=== PATIENT | male | born 1970 | race Hispanic/Latino ===

== ENCOUNTER 2017-12-28 08:56 | Emergency (ER) | payer SELFPAY ==
[2017-12-28] MEDS ORDERED: DEXAMETHASONE 10 MG/ML VIAL ONE (09:21)
[2017-12-28] MEDS ORDERED: FAMOTIDINE 20 MG/2 ML VIAL IV ONE (09:21)
[2017-12-28] MEDS ORDERED: NA CHLORIDE 0.9% 1,000 ML ONE (09:31)
[2017-12-28] MEDS ORDERED: DIPHENHYDRAMINE 50 MG/ML VIAL ONE ×2 (09:31→10:22)
[2017-12-28 09:59] LABS: Absolute Lymphocytes (CBC) 1.3 K/uL (0.7-4.9); Absolute Neutrophil 8.8 K/uL (1.8-8.0); Basophils % 0.4 % (0-1.3); Eosinophils % 0.4 % (0-4.4); Hematocrit 43.1 % (39.6-49.0); Lymphocytes % 11.7 % (15.3-44.8); MCH 32.7 pg (27.0-35.0); MCV 94.7 fL (80-100); Monocytes % 8.8 % (3.3-12.3); RBC Red Blood Cell Count 4.55 M/uL (4.33-5.43)
[2017-12-28 10:03] LABS: Bicarbonate 26 mEq/L (21-31); Glucose Level 104 mg/dL (65-120); Potassium 3.5 mEq/L (3.6-5.0); Sodium Level 136 mEq/L (135-145)
[2017-12-28 10:04] LABS: BUN Blood Urea Nitrogen 15 mg/dL (6-20)
[2017-12-28] MEDS ORDERED: FENTANYL CITR 100 MCG/2 ML ONE (10:22)
[2017-12-28] MEDS ORDERED: EPINEPHRINE INH 0.5 ML VIAL IH ONE (10:42)
[2017-12-28 10:50] LABS: Urine Blood TRACE (NEG); Urine Glucose NEGATIVE (NEG); Urine Protein NEGATIVE (NEG); Urine Specific Gravity 1.025 (1.005-1.030); Urine pH 6.5 (5.0-7.0)
--- NOTE | 2017-12-28 11:11 | ER ---
Nurse's Notes [facility] Name: Jacques Oropeza Age: 47 yrs Sex: Male : 1970 Arrival Date: 12/28/2017 Time: 08:59 Bed 15 Private MD: None, None Diagnosis: Uvular hydrops Presentation: 12/28 11:31 Acuity: BRODY 2 ae1 Historical: - Allergies: 09:14 No Known Allergies; rv - Home Meds: 09:14 None [Active]; rv - Immunization history:: Last tetanus immunization: up to date Flu vaccine is up to date. - Social history:: Patient uses street drugs, marijuana. Assessment: 09:11 General: Appears in no apparent distress. comfortable, well developed, Behavior is rv calm, cooperative, Reports. Pain: Complains of pain in left ear and uvula. Neuro: Level of Consciousness is awake, alert, obeys commands, Oriented to person, place, time. Cardiovascular:. Respiratory: Airway is patent Respiratory effort is unlabored, Breath sounds are clear. GI: No signs and/or symptoms were reported involving the gastrointestinal system. : No signs and/or symptoms were reported regarding the genitourinary system. EENT: Throat swollen uvula.. Derm: No signs and/or symptoms reported regarding the dermatologic system. Musculoskeletal: No signs and/or symptoms reported regarding the musculoskeletal system. 10:15 Reassessment: Patient and/or family updated on plan of care and expected duration. Pain mb3 level reassessed. Patient is alert, oriented x 3, equal unlabored respirations, skin warm/dry/pink. 11:15 Reassessment: No changes from previously documented assessment. Patient and/or family mb3 updated on plan of care and expected duration. Pain level reassessed. Patient is alert, oriented x 3, equal unlabored respirations, skin warm/dry/pink. 11:53 Reassessment: Report called to Alyssa Lester RN, SBAR used, all questions mb3 answered. Vital Signs: 09:13 BP 124 / 94; Pulse 91; Resp 18; Temp 98.1; Pulse Ox 98% on R/A; rv 10:15 BP 123 / 93; Pulse 78; Resp 18; Pulse Ox 97% on R/A; mb3 10:22 BP 119 / 90; Pulse 79; Resp 18; Pulse Ox 97% on R/A; mh5 10:46 BP 122 / 92; Pulse 86; Resp 18 S; Pulse Ox 100% ; mb3 11:36 BP 124 / 82; Pulse 82; Resp 18; Pulse Ox 99% on R/A; mb3 ED Course: 08:59 Patient arrived in ED. mr 08:59 None, None is Private Physician. mr 09:06 [facility] snw 09:06 Dipak Julian MD is Attending Physician. snw 10:14 Adarsh Breen, LES is Primary Nurse. mb3 10:24 Patient has correct armband on for positive identification. Placed in gown. Bed in low mh5 position. Call light in reach. Warm blanket given. Pulse ox on. NIBP on. 11:32 Triage completed. ae1 Administered Medications: 09:35 Drug: NS 0.9% 1000 ml Route: IV; Rate: 125 ml/hr; Site: right antecubital; rv 09:35 Drug: Decadron - Dexamethasone 10 mg Route: IVP; Site: right antecubital; rv 10:28 Follow up: Response: No adverse reaction mb3 09:35 Drug: Pepcid 20 mg Route: IVP; Site: right antecubital; rv 10:30 Follow up: Response: No adverse reaction mb3 09:35 Drug: Benadryl 12.5 mg Route: IVP; Site: right antecubital; rv 10:30 Follow up: Response: No adverse reaction mb3 10:27 Drug: fentaNYL (PF) 25 mcg Route: IVP; Site: right antecubital; mb3 10:27 Drug: Benadryl 12.5 mg Route: IVP; Site: right antecubital; mb3 10:45 Drug: Racemic EPINPHrine 0.5 ml Route: Inhalation; mb3 11:26 Drug: Unasyn 3 grams Route: IVPB; Infused Over: 30 mins; Site: right antecubital; mb3 Outcome: 11:11 ER care complete, transfer ordered by . snw 13:08 Patient left the ED. em Signatures: Kasandra Pedraza FNP-C AGRICULTURE RESEARCH DIRECTOR-Csnw Nyla Watson mr Bashir Torres, RETAIL SUPPORT ASSOCIATE RETAIL SUPPORT ASSOCIATE em Rito Alves RN RN ae1 Nyla Claire 5 Adarsh Breen, RN RN mb3 Aashish Godoy, RN RN rv
--- NOTE | 2017-12-28 11:11 | EDPHYS ---
Physician Documentation [facility] Name: Jacques Oropeza Age: 47 yrs Sex: Male : 1970 Arrival Date: 12/28/2017 Time: 08:59 Bed 15 Private MD: None, None ED Physician Dipak Julian HPI: 12/28 09:11 This 47 yrs old Male presents to ER via Unassigned with complaints of Sore snw Throat, Ear Pain. 09:11 The patient presents with sore throat, dysphagia. The patient describes throat pain as snw suffocating. Onset: The symptoms/episode began/occurred gradually, 3 day(s) ago. Severity of symptoms: At their worst the symptoms were moderate, severe. Associated signs and symptoms: Pertinent positives: dysphagia. The patient has not experienced similar symptoms in the past. The patient has not recently seen a physician. pt states his throat has become progressively more painful. + hot potato speech, no trismus. Historical: - Allergies: 09:14 No Known Allergies; rv - Home Meds: 09:14 None [Active]; rv - Immunization history:: Last tetanus immunization: up to date Flu vaccine is up to date. - Social history:: Patient uses street drugs, marijuana. ROS: 09:11 Constitutional: Negative for fever, chills, and weight loss, Eyes: Negative for injury, snw pain, redness, and discharge, Neck: Negative for injury, pain, and swelling, Cardiovascular: Negative for chest pain, palpitations, and edema, Respiratory: Negative for shortness of breath, cough, wheezing, and pleuritic chest pain, Abdomen/GI: Negative for abdominal pain, nausea, vomiting, diarrhea, and constipation, Back: Negative for injury and pain, : Negative for injury, bleeding, discharge, and swelling, MS/Extremity: Negative for injury and deformity, Skin: Negative for injury, rash, and discoloration, Neuro: Negative for headache, weakness, numbness, tingling, and seizure. Exam: 09:11 Constitutional: This is a well developed, well nourished patient who is awake, alert, snw and in no acute distress. Head/Face: Normocephalic, atraumatic. ENT: Nares patent. No nasal discharge, no septal abnormalities noted. Tympanic membranes are normal and external auditory canals are clear. Oropharynx with redness, significant uvular swelling, no masses, exudates, or evidence of obstruction, uvula midline. Mucous membranes moist. Neck: Trachea midline, no thyromegaly or masses palpated, and no cervical lymphadenopathy. Supple, full range of motion without nuchal rigidity, or vertebral point tenderness. No Meningismus. Chest/axilla: Normal chest wall appearance and motion. Nontender with no deformity. No lesions are appreciated. Cardiovascular: Regular rate and rhythm with a normal S1 and S2. No gallops, murmurs, or rubs. Normal PMI, no JVD. No pulse deficits. Respiratory: Lungs have equal breath sounds bilaterally, clear to auscultation and percussion. No rales, rhonchi or wheezes noted. No increased work of breathing, no retractions or nasal flaring. Abdomen/GI: Soft, non-tender, with normal bowel sounds. No distension or tympany. No guarding or rebound. No evidence of tenderness throughout. Back: No spinal tenderness. No costovertebral tenderness. Full range of motion. Skin: Warm, dry with normal turgor. Normal color with no rashes, no lesions, and no evidence of cellulitis. MS/ Extremity: Pulses equal, no cyanosis. Neurovascular intact. Full, normal range of motion. Neuro: Awake and alert, GCS 15, oriented to person, place, time, and situation. Cranial nerves II-XII grossly intact. Motor strength 5/5 in all extremities. Sensory grossly intact. Cerebellar exam normal. Normal gait. 09:11 Eyes: Pupils equal round and reactive to light, extra-ocular motions intact. Lids and lashes normal. Conjunctiva and sclera are non-icteric and not injected. Cornea within normal limits. Periorbital areas with no swelling, redness, or edema. Vital Signs: 09:13 BP 124 / 94; Pulse 91; Resp 18; Temp 98.1; Pulse Ox 98% on R/A; rv 10:15 BP 123 / 93; Pulse 78; Resp 18; Pulse Ox 97% on R/A; mb3 10:22 BP 119 / 90; Pulse 79; Resp 18; Pulse Ox 97% on R/A; mh5 10:46 BP 122 / 92; Pulse 86; Resp 18 S; Pulse Ox 100% ; mb3 11:36 BP 124 / 82; Pulse 82; Resp 18; Pulse Ox 99% on R/A; mb3 MDM: 09:11 Patient medically screened. snw 11:11 Data reviewed: vital signs, nurses notes. Data interpreted: Pulse oximetry: on room air snw is 100 %. Interpretation: normal. Counseling: I had a detailed discussion with the patient and/or guardian regarding: the historical points, exam findings, and any diagnostic results supporting the discharge/admit diagnosis, the presence of at least one elevated blood pressure reading (>120/80) during this emergency department visit, lab results, the need to transfer to another facility, [facility] does not immediately have the required specialist. Physician consultation: Dr. Tapia was called at 10:50, was contacted at 10:55, regarding regarding transfer, to [facility]. would like admission per Dr. Dr Cortez Spoke with Dr. Cortez who kindly accepts pt in transfer to ICU [facility]. 12/28 09:25 Order name: Basic Metabolic Panel; Complete Time: 10:06 formerly [facility] 12/28 09:25 Order name: CBC with Diff; Complete Time: 10:06 w 12/28 09:25 Order name: Blood Culture Adult (2) formerly [facility] 12/28 10:01 Order name: Urine Dipstick--Ancillary (enter results); Complete Time: 10:52 bd 12/28 09:25 Order name: IV Saline Lock; Complete Time: 09:50 snw 12/28 09:25 Order name: Labs collected and sent; Complete Time: 09:51 w 12/28 09:25 Order name: Urine Dipstick-Ancillary (obtain specimen); Complete Time: 09:51 snw Administered Medications: 09:35 Drug: NS 0.9% 1000 ml Route: IV; Rate: 125 ml/hr; Site: right antecubital; rv 09:35 Drug: Decadron - Dexamethasone 10 mg Route: IVP; Site: right antecubital; rv 10:28 Follow up: Response: No adverse reaction mb3 09:35 Drug: Pepcid 20 mg Route: IVP; Site: right antecubital; rv 10:30 Follow up: Response: No adverse reaction mb3 09:35 Drug: Benadryl 12.5 mg Route: IVP; Site: right antecubital; rv 10:30 Follow up: Response: No adverse reaction mb3 10:27 Drug: fentaNYL (PF) 25 mcg Route: IVP; Site: right antecubital; mb3 10:27 Drug: Benadryl 12.5 mg Route: IVP; Site: right antecubital; mb3 10:45 Drug: Racemic EPINPHrine 0.5 ml Route: Inhalation; mb3 11:26 Drug: Unasyn 3 grams Route: IVPB; Infused Over: 30 mins; Site: right antecubital; mb3 Disposition: 16:16 Co-signature as Attending Physician, Dipak Julian MD I agree with the assessment and kdr plan of care. Disposition: 12/28/17 11:11 Transfer ordered to [facility]. Diagnosis is Uvular hydrops. - Reason for transfer: Higher level of care. - Accepting physician is Dr. Cortez. - Condition is Stable. - Problem is new. - Symptoms are unchanged. Signatures: Dispatcher [employer] EDDipak Montesinos MD MD kdr Kasandra Pedraza, SCREW REMOVER-C SCREW REMOVER-Csnw Bashir Torres, MODULAR HOME CREW MEMBER MODULAR HOME CREW MEMBER em Adarsh Breen, RN RN mb3 Aashish Godoy, RN RN rv Corrections: (The following items were deleted from the chart) 13:08 11:11 12/28/2017 11:11 Transfer ordered to [facility]. Diagnosis is em Uvular hydrops. Reason for transfer: Higher level of care. Accepting physician is Dr. Cortez. Condition is Stable. Problem is new. Symptoms are unchanged. snw
[2017-12-28] MEDS ORDERED: NA CHLORIDE 0.9% 250 ML ONE (11:23)
[2017-12-28] MEDS ORDERED: AMPICILLIN/SULBACTAM 3GM/VIAL ONE (11:23)
== END 2017-12-28 13:08 | disposition short-term general hospital (02) ==
LOC: ER 08:56
DX: R60.9 Edema, unspecified (principal)
CPT/HCPCS: 36415; 80048; 81003; 85025; 87040; 96374; 96375; 99284; J0295; J1100; J3010; J7030

== ENCOUNTER 2018-04-24 16:15 | Emergency (ER) | payer SELFPAY ==
--- OUTSIDE RECORDS SUMMARY | 2018-04-24 16:17 | XMS REPORT ---
:1970 [facility] Address [address] [place] [address] Dr. Peters [address] [place] [id number] Care Team Providers Name Role Phone BALJINDER LENTZ Unavailable Unavailable Problems This patient has no known problems. Allergies, Adverse Reactions, Alerts This patient has no known allergies or adverse reactions. Medications This patient has no known medications. Results Test Description Test Time Test Comments Text Results Atomic Results Result Comments RAPID STREP A SCREEN 2017-12-29 09:58:00 Test Item Value Reference Range Comments STREP A ANTIGEN (BEAKER) (test ngrp=845) Negative Negative HIV-1 ANTIGEN WITH HIV-1/2 [id number] 08:48:00 Test Item Value Reference Range Comments HIV-1 ANTIGEN WITH HIV 1\T\2 ANTIBODY (2) Nonreactive Nonreactive (BEAKER) (test zocf=2424) BASIC METABOLIC [id number] 04:37:00 Test Item Value Reference Range Comments SODIUM (BEAKER) (test 138 meq/L 136-145 mkrh=760) POTASSIUM (BEAKER) (test 3.9 meq/L 3.5-5.1 iuhe=074) CHLORIDE (BEAKER) (test 106 meq/L 98-107 xdnl=276) CO2 (BEAKER) (test 22 meq/L 22-29 pakl=054) BLOOD UREA NITROGEN 23 mg/dL 7-21 (BEAKER) (test crxn=882) CREATININE (BEAKER) (test 0.89 mg/dL 0.57-1.25 uofm=007) GLUCOSE RANDOM (BEAKER) 163 mg/dL 70-105 (test jxdu=217) CALCIUM (BEAKER) (test 9.6 mg/dL 8.4-10.2 wugx=127) EGFR (BEAKER) (test mL/min/1.73 sq m INSUFFICIENT CLINICAL DATA doia=1852) TO CALCULATE ESTIMATED GFR. CBC W/PLT COUNT & AUTO [id number] 04:21:00 Test Item Value Reference Range Comments WHITE BLOOD CELL COUNT (BEAKER) (test umnn=884) 11.3 K/ L 3.5-10.5 RED BLOOD CELL COUNT (BEAKER) (test tiyx=724) 4.27 M/ L 4.63-6.08 HEMOGLOBIN (BEAKER) (test vkmy=690) 14.4 GM/DL 13.7-17.5 HEMATOCRIT (BEAKER) (test aoef=484) 40.9 % 40.1-51.0 MEAN CORPUSCULAR VOLUME (BEAKER) (test bqxf=538) 95.8 fL 79.0-92.2 MEAN CORPUSCULAR HEMOGLOBIN (BEAKER) (test 33.7 pg 25.7-32.2 orpk=707) MEAN CORPUSCULAR HEMOGLOBIN CONC (BEAKER) (test 35.2 GM/DL 32.3-36.5 mdpi=680) RED CELL DISTRIBUTION WIDTH (BEAKER) (test 12.2 % 11.6-14.4 xldf=068) PLATELET COUNT (BEAKER) (test zzwp=410) 269 K/CU MM 150-450 MEAN PLATELET VOLUME (BEAKER) (test ljgb=294) 9.4 fL 9.4-12.4 NUCLEATED RED BLOOD CELLS (BEAKER) (test 0 /100 WBC 0-0 nddh=118) NEUTROPHILS RELATIVE PERCENT (BEAKER) (test 91 % azsj=237) LYMPHOCYTES RELATIVE PERCENT (BEAKER) (test 5 % mbpo=627) MONOCYTES RELATIVE PERCENT (BEAKER) (test 3 % kijc=875) EOSINOPHILS RELATIVE PERCENT (BEAKER) (test 0 % abmd=311) BASOPHILS RELATIVE PERCENT (BEAKER) (test 0 % zveh=858) NEUTROPHILS ABSOLUTE COUNT (BEAKER) (test 10.28 K/ L 1.78-5.38 jymk=756) LYMPHOCYTES ABSOLUTE COUNT (BEAKER) (test 0.61 K/ L 1.32-3.57 vnqa=653) MONOCYTES ABSOLUTE COUNT (BEAKER) (test 0.32 K/ L 0.30-0.82 wvfz=335) EOSINOPHILS ABSOLUTE COUNT (BEAKER) (test 0.00 K/ L 0.04-0.54 jeoj=172) BASOPHILS ABSOLUTE COUNT (BEAKER) (test 0.01 K/ L 0.01-0.08 mwbt=702) IMMATURE GRANULOCYTES-RELATIVE PERCENT (BEAKER) 0 % 0-1 (test rdqv=6561) RAD, CHEST, 1 VIEW, NON [id number] 15:38:00Post-intubationReason for exam:-& gt;dyspneaShould this be performed at the bedside?->YesFINAL REPORT Chest, one view HISTORY: Dyspnea COMPARISON: None. DISCUSSION: Lungs are clear without focal consolidation. Cardiomediastinal silhouette is unremarkable. No acute osseous abnormality. No pleural effusion or pneumothorax. Visualized portions of the upper abdomen are unremarkable. IMPRESSION: No acute cardiopulmonary abnormality. Signed: Shiraz Culp MDReport Verified Date/Time: 12/28/2017 15:38:07 Reading Location: [facility] C013Y CT Body Reading Room [id number] 15:13:00 Test Item Value Reference Range Comments PARTIAL THROMBOPLASTIN TIME (BEAKER) (test 32.6 seconds 22.5-36.0 vulr=348) PROTHROMBIN TIME/[id number] 15:12:00 Test Item Value Reference Range Comments PROTIME (BEAKER) (test xztx=558) 14.3 seconds 11.7-14.7 INR (BEAKER) (test fwkg=052) 1.1 <=5.9 RECOMMENDED COUMADIN/WARFARIN INR THERAPY RANGESSTANDARD DOSE: 2.0 - 3.0 Includes: PROPHYLAXIS forvenous thrombosis, systemic embolization; TREATMENT for venous thrombosis and/or pulmonary embolus.HIGH RISK: Target INR is 2.5-3.5 for patients with mechanical heart valves.
--- OUTSIDE RECORDS SUMMARY | 2018-04-24 16:17 | XMS REPORT | Clinical Summary ---
:1970 Author Organization [facility] Address [address] [place] [address] Phone Care Team Providers Name Role Phone Unavailable Primary Care Provider Unavailable Allergies No Known Allergies Current Medications Prescription Sig. Disp. Refills Start Date End Date Status amoxicillin-clavulanat Take 1 tablet 10 tablet 0 12/29/2017 01/03/2018 e (AUGMENTIN) 875-125 by mouth 2 mg per tablet (two) times daily for 5 days. Active Problems Problem Noted Date Pharyngitis 12/29/2017 Uvular edema 12/28/2017 Encounters Date Type Specialty Care Team Description 12/28/2017 - Hospital Encounter Intensive Care Richie Cortez Uvular 12/29/2017 Didier Parson MD edema;Pharyngitis, unspecified etiology after 04/23/2017 Social History Tobacco Use Types Packs/Day Years Used Date Never Smoker Smokeless Tobacco: Never Used Sex Assigned at Date Recorded Not on file Last Filed Vital Signs Vital Sign Reading Time Taken Blood Pressure 149/87 12/29/2017 12:00 PM CDT Pulse 87 12/29/2017 12:00 PM CDT Temperature 36.7 C (98.1 F) 12/29/2017 11:00 AM CDT Respiratory Rate 15 12/29/2017 12:00 PM CDT Oxygen Saturation 95% 12/29/2017 12:00 PM CDT Inhaled Oxygen Concentration - - Weight 79.6 kg (175 lb 6.4 oz) 12/28/2017 2:16 PM CDT Height 167.6 cm (5' 6") 12/28/2017 2:16 PM CDT Body Mass Index 28.31 12/28/2017 2:16 PM CDT Plan of Treatment Not on file Results RHYTHM STRIP - SCAN (01/01/2018 2:00 PM)Rapid Strep A screen (12/29/2017 7:50 AM) Component Value Ref Range Strep A Ag Negative Negative Specimen Performing Laboratory Throat [address] [address] HIV-1 Antigen with HIV-1/2 Antibody (12/29/2017 7:49 AM) Component Value Ref Range HIV-1 Antigen with HIV 1&2 Antibody Nonreactive Nonreactive Specimen Performing Laboratory Blood - Arm, Right [address] [address] CBC with platelet count + automated diff (12/29/2017 3:52 AM) Component Value Ref Range WBC 11.3 (H) 3.5 - 10.5 K/L RBC 4.27 (L) 4.63 - 6.08 M/L Hemoglobin 14.4 13.7 - 17.5 GM/DL Hematocrit 40.9 40.1 - 51.0 % MCV 95.8 (H) 79.0 - 92.2 fL MCH 33.7 (H) 25.7 - 32.2 pg MCHC 35.2 32.3 - 36.5 GM/DL RDW 12.2 11.6 - 14.4 % Platelets 269 150 - 450 K/CU MM MPV 9.4 9.4 - 12.4 fL nRBC 0 0 - 0 /100 WBC % Neutros 91 % % Lymphs 5 % % Monos 3 % % Eos 0 % % Baso 0 % # Neutros 10.28 (H) 1.78 - 5.38 K/L # Lymphs 0.61 (L) 1.32 - 3.57 K/L # Monos 0.32 0.30 - 0.82 K/L # Eos 0.00 (L) 0.04 - 0.54 K/L # Baso 0.01 0.01 - 0.08 K/L Immature Granulocytes-Relative 0 0 - 1 % Specimen Performing Laboratory Blood [address] [address] CBC with platelet count + automated diff (12/29/2017 3:52 AM) Specimen Performing Laboratory Blood Narrative The following orders were created for panel order CBC with platelet count + automated diff. Procedure Abnormality Status --------- ------ CBC with platelet count ...[[id number]]AbnormalFinal result Please view results for these tests on the individual orders. Basic Metabolic Panel (12/29/2017 3:52 AM) Component Value Ref Range Sodium 138 136 - 145 meq/L Potassium 3.9 3.5 - 5.1 meq/L Chloride 106 98 - 107 meq/L CO2 22 22 - 29 meq/L BUN 23 (H) 7 - 21 mg/dL Creatinine 0.89 0.57 - 1.25 mg/dL Glucose 163 (H) 70 - 105 mg/dL Calcium 9.6 8.4 - 10.2 mg/dL EGFR Comment: INSUFFICIENT CLINICAL DATA TO CALCULATE mL/min/1.73 sq m ESTIMATED GFR. Specimen Performing Laboratory Blood [address] [address] aPTT (12/28/2017 2:54 PM) Component Value Ref Range PTT 32.6 22.5 - 36.0 seconds Specimen Performing Laboratory Blood - Arm, [address] [address] Prothrombin time/INR (12/28/2017 2:54 PM) Component Value Ref Range Protime 14.3 11.7 - 14.7 seconds INR 1.1 <=5.9 Specimen Performing Laboratory Blood - Arm, [address] [address] Narrative RECOMMENDED COUMADIN/WARFARIN INR THERAPY RANGES STANDARD DOSE: 2.0 - 3.0 Includes: PROPHYLAXIS for venous thrombosis, systemic embolization; TREATMENT for venous thrombosis and/or pulmonary embolus. HIGH RISK: Target INR is 2.5-3.5 for patients with mechanical heart valves. XR chest 1 view portable / bedside (12/28/2017 2:24 PM) Specimen Performing Laboratory GE RIS Narrative FINAL REPORT Chest, one view HISTORY: Dyspnea COMPARISON: None. DISCUSSION: Lungs are clear without focal consolidation. Cardiomediastinal silhouette is unremarkable. No acute osseous abnormality. No pleural effusion or pneumothorax. Visualized portions of the upper abdomen are unremarkable. IMPRESSION: No acute cardiopulmonary abnormality. Signed: Shiraz Culp MD Report Verified Date/Time:12/28/2017 15:38:07 Reading Location: [facility] C013Y CT Body Reading Room Procedure Note Interface, External Ris In - 12/28/2017 3:40 PM CDT FINAL REPORT Chest, one view HISTORY: Dyspnea COMPARISON: None. DISCUSSION: Lungs are clear without focal consolidation. Cardiomediastinal silhouette is unremarkable. No acute osseous abnormality. No pleural effusion or pneumothorax. Visualized portions of the upper abdomen are unremarkable. IMPRESSION: No acute cardiopulmonary abnormality. Signed: Shiraz Culp MD Report Verified Date/Time: 12/28/2017 15:38:07 Reading Location: [facility] B1 C013Y CT Body Reading Room after 04/23/2017
[2018-04-24] MEDS ORDERED: IBUPROFEN 400 MG TAB ONE (17:38)
[2018-04-24] MEDS ORDERED: METHYLPREDNISOLONE 125 MG INJ ONE (17:38)
[2018-04-24] MEDS ORDERED: KETOROLAC 30 MG/ML INJ ONE (17:39)
[2018-04-24] MEDS ORDERED: FAMOTIDINE 20 MG TAB ONE (17:39)
--- NOTE | 2018-04-24 18:17 | ER ---
Nurse's Notes [facility] Name: Jacques Oropeza Age: 48 yrs Sex: Male : 1970 Arrival Date: 04/24/2018 Time: 16:17 Bed 24 Private MD: Diagnosis: Sciatica, left side Presentation: 04/24 16:33 Presenting complaint: Patient states: left low back pain radiating down left leg that aa5 began 2 days ago. Transition of care: patient was not received from another setting of care. Onset of symptoms was April 2018. Risk Assessment: Do you want to hurt yourself or someone else? Patient reports no desire to harm self or others. Initial Sepsis Screen: Does the patient meet any 2 criteria? No. Patient's initial sepsis screen is negative. Does the patient have a suspected source of infection? No. Patient's initial sepsis screen is negative. Care prior to arrival: None. 16:33 Method Of Arrival: Ambulatory aa5 16:33 Acuity: BRODY 4 aa5 Historical: - Allergies: 16:34 No Known Allergies; aa5 - PMHx: 16:34 None; aa5 - PSHx: 16:34 left leg; aa5 - Immunization history:: Adult Immunizations unknown. - Social history:: Smoking status: Patient/guardian denies using tobacco. - Ebola Screening: : No symptoms or risks identified at this time. Screenin:14 Abuse screen: Denies threats or abuse. Nutritional screening: No deficits noted. tl3 Tuberculosis screening: No symptoms or risk factors identified. Fall Risk None identified. Assessment: 17:14 General: Appears uncomfortable, well groomed, well developed, well nourished, Behavior tl3 is calm, cooperative, appropriate for age. Pain: Complains of pain in left lower back, hip arond down the left leg Pain currently is 8 out of 10 on a pain scale. Neuro: Level of Consciousness is awake, alert, obeys commands, Oriented to person, place, time, situation, Appropriate for age. Cardiovascular: Patient's skin is warm and dry. Respiratory: Airway is patent Respiratory effort is even, unlabored, Respiratory pattern is regular, symmetrical. GI: No signs and/or symptoms were reported involving the gastrointestinal system. : No signs and/or symptoms were reported regarding the genitourinary system. EENT: No signs and/or symptoms were reported regarding the EENT system. Derm: No signs and/or symptoms reported regarding the dermatologic system. Musculoskeletal: Reports since 2 days. tried bio freeze and motrin, no relief obtained. 18:29 Reassessment: No changes from previously documented assessment. Patient and/or family tl3 updated on plan of care and expected duration. Pain level reassessed. Patient is alert, oriented x 3, equal unlabored respirations, skin warm/dry/pink. Vital Signs: 16:34 BP 114 / 75; Pulse 87; Resp 16 S; Temp 98.2(TE); Pulse Ox 96% on R/A; Weight 84.37 kg aa5 (R); Height 5 ft. 6 in. (167.64 cm) (R); Pain 8/10; 16:54 BP 107 / 79; Pulse 80; Resp 16; Pulse Ox 99% on R/A; mt 18:29 BP 116 / 62; Pulse 63; Resp 18; Pulse Ox 99% on R/A; tl3 16:34 Body Mass Index 30.02 (84.37 kg, 167.64 cm) aa5 ED Course: 16:17 Patient arrived in ED. rg4 16:34 Triage completed. aa5 16:34 Arm band placed on. aa5 16:45 Gabi Banks RN is Primary Nurse. tl3 16:49 Dipak Julian MD is Attending Physician. kdr 17:14 Patient has correct armband on for positive identification. Bed in low position. Call tl3 light in reach. Side rails up X 1. Pulse ox on. NIBP on. 17:14 No provider procedures requiring assistance completed. tl3 18:29 Patient did not have IV access during this emergency room visit. tl3 Administered Medications: 17:40 Drug: Motrin 800 mg Route: PO; tl3 18:30 Follow up: Response: No adverse reaction; Pain is decreased tl3 17:40 Drug: Pepcid 20 mg Route: PO; tl3 18:30 Follow up: Response: No adverse reaction tl3 17:41 Drug: TORadol 60 mg Route: IM; Site: left vastus lateralis; tl3 18:30 Follow up: Response: No adverse reaction; Pain is decreased tl3 17:41 Drug: SOLU-Medrol 125 mg Route: IM; Site: left vastus lateralis; tl3 18:30 Follow up: Response: No adverse reaction tl3 Outcome: 18:16 Discharge ordered by . kdr 18:29 Discharged to home ambulatory. tl3 18:29 Condition: stable 18:29 Discharge instructions given to patient, Instructed on discharge instructions, follow up and referral plans. medication usage, Demonstrated understanding of instructions, follow-up care, medications, Prescriptions given X 4. 18:53 Patient left the ED. tl3 Signatures: Dipak Julian MD MD kdr Calderon, Audri, RN RN aa5 Alexandrea Gonzalez Moriah mt Lowrey, Tammy, LES RN tl3
--- NOTE | 2018-04-24 18:17 | EDPHYS ---
Physician Documentation [facility] Name: Jacques Oropeza Age: 48 yrs Sex: Male : 1970 Arrival Date: 04/24/2018 Time: 16:17 Bed 24 Private MD: ED Physician Dipak Julian HPI: 04/24 18:20 This 48 yrs old Male presents to ER via Ambulatory with complaints of Leg kdr Pain, Back Pain. 18:20 The patient presents with. kdr 18:21 The patient's problem is reported as Left sciatic nerve pain. Onset: The kdr symptoms/episode began/occurred gradually, 2 day(s) ago. Duration: The episode is continuous, the symptoms became worse the symptoms became persistent. Context: the episode(s) was witnessed, symptoms became apparent. The symptoms are alleviated by laying, rest, The symptoms are aggravated by standing, walking, changing position. Associated signs and symptoms: The patient has no apparent associated signs or symptoms, Pertinent negatives: agitation, ataxia, headache, lightheadedness, numbness, palpitations, seizure, shortness of breath, tingling, vertigo, vomiting, weakness. Severity of symptoms: At their worst the symptoms were mild moderate just prior to arrival, in the emergency department the symptoms are unchanged. The patient has not experienced similar symptoms in the past. Historical: - Allergies: 16:34 No Known Allergies; aa5 - PMHx: 16:34 None; aa5 - PSHx: 16:34 left leg; aa5 - Immunization history:: Adult Immunizations unknown. - Social history:: Smoking status: Patient/guardian denies using tobacco. - Ebola Screening: : No symptoms or risks identified at this time. ROS: 18:21 Constitutional: Negative for fever, chills, and weight loss, Eyes: Negative for injury, kdr pain, redness, and discharge, ENT: Negative for injury, pain, and discharge, Neck: Negative for injury, pain, and swelling, Cardiovascular: Negative for chest pain, palpitations, and edema, Respiratory: Negative for shortness of breath, cough, wheezing, and pleuritic chest pain, Abdomen/GI: Negative for abdominal pain, nausea, vomiting, diarrhea, and constipation, : Negative for injury, bleeding, discharge, and swelling, Skin: Negative for injury, rash, and discoloration, Neuro: Negative for headache, weakness, numbness, tingling, and seizure activity. Psych: Negative for depression, anxiety, suicide ideation, homicidal ideation, and hallucinations, Allergy/Immunology: Negative for hives, rash, and allergies, Endocrine: Negative for neck swelling, polydipsia, polyuria, polyphagia, and marked weight changes, Hematologic/Lymphatic: Negative for swollen nodes, abnormal bleeding, and unusual bruising. 18:21 Back: Positive for pain with movement, Negative for pain at rest. 18:21 MS/extremity: Positive for Pain radiating down left leg anteriorly. Exam: 18:21 Constitutional: This is a well developed, well nourished patient who is awake, alert, kdr and in no acute distress. Head/Face: Normocephalic, atraumatic. 18:21 Musculoskeletal/extremity: Extremities: Pain with straight leg rasing to about 20% on the left. No pain on the right. No change in bowel or bladder control, ROM: intact in all extremities, Circulation is intact in all extremities. Sensation intact. Vital Signs: 16:34 BP 114 / 75; Pulse 87; Resp 16 S; Temp 98.2(TE); Pulse Ox 96% on R/A; Weight 84.37 kg aa5 (R); Height 5 ft. 6 in. (167.64 cm) (R); Pain 8/10; 16:54 BP 107 / 79; Pulse 80; Resp 16; Pulse Ox 99% on R/A; mt 18:29 BP 116 / 62; Pulse 63; Resp 18; Pulse Ox 99% on R/A; tl3 16:34 Body Mass Index 30.02 (84.37 kg, 167.64 cm) aa5 MDM: 18:16 Patient medically screened. kdr 18:21 Data reviewed: vital signs, nurses notes. Counseling: I had a detailed discussion with kdr the patient and/or guardian regarding: the historical points, exam findings, and any diagnostic results supporting the discharge/admit diagnosis, the need for outpatient follow up. Administered Medications: 17:40 Drug: Motrin 800 mg Route: PO; tl3 18:30 Follow up: Response: No adverse reaction; Pain is decreased tl3 17:40 Drug: Pepcid 20 mg Route: PO; tl3 18:30 Follow up: Response: No adverse reaction tl3 17:41 Drug: TORadol 60 mg Route: IM; Site: left vastus lateralis; tl3 18:30 Follow up: Response: No adverse reaction; Pain is decreased tl3 17:41 Drug: SOLU-Medrol 125 mg Route: IM; Site: left vastus lateralis; tl3 18:30 Follow up: Response: No adverse reaction tl3 Disposition: 04/24/18 18:16 Discharged to Home. Impression: Sciatica, left side. - Condition is Stable. - Discharge Instructions: Sciatica, [id number], Radicular Pain. - Prescriptions for Ibuprofen 800 mg Oral Tablet - take 1 tablet by ORAL route every 8 hours As needed take with food; 30 tablet. Pepcid 20 mg Oral Tablet - take 1 tablet by ORAL route every 12 hours for 5 days; 20 tablet. Robaxin 500 mg Oral Tablet - take 2 tablet by ORAL route every 6 hours As needed; 40 tablet. Medrol (Charlie) 4 mg Oral Tablets, Dose Pack - take 1 tablet by ORAL route as directed - follow package instructions; 1 packet. Tylenol- Codeine #3 300-30 mg Oral Tablet - take 2 tablets by ORAL route every 6 hours As needed; 15 tablet. - Medication Reconciliation Form, Thank You Letter, Antibiotic Education, Prescription Opioid Use form. - Follow up: Private Physician; When: 2 - 3 days; Reason: If symptoms return, Further diagnostic work-up, Recheck today's complaints, Continuance of care, Re-evaluation by your physician. - Problem is an acute exacerbation. - Symptoms have improved. Signatures: Dipak Julian MD MD [facility] Tracie Chandra RN RN aa5 Gabi Banks RN RN tl3 Corrections: (The following items were deleted from the chart) 18:53 18:16 04/24/2018 18:16 Discharged to Home. Impression: Sciatica, left side. Condition tl3 is Stable. Forms are Medication Reconciliation Form, Thank You Letter, Antibiotic Education, Prescription Opioid Use. Follow up: Private Physician; When: 2 - 3 days; Reason: If symptoms return, Further diagnostic work-up, Recheck today's complaints, Continuance of care, Re-evaluation by your physician. Problem is an acute exacerbation. Symptoms have improved. kdr
== END 2018-04-24 18:53 | disposition home or self-care (01) ==
LOC: ER 16:15
DX: M54.32 Sciatica, left side (principal)
CPT/HCPCS: 96372; 99283; J2930

== ENCOUNTER 2019-01-18 09:21 | Emergency (ER) | payer SELFPAY ==
--- OUTSIDE RECORDS SUMMARY | 2019-01-18 09:24 | XMS REPORT ---
:1970 Author Organization [facility] Address [facility] [address] [place] [id number] Care Team Providers Name Role Phone BALJINDER [...] Range Comments STREP A ANTIGEN (BEAKER) (test uozd=691) Negative Negative HIV-1 ANTIGEN WITH HIV-1/2 [id number] 08:48:00 Test Item Value Reference Range Comments HIV-1 ANTIGEN WITH HIV 1\T\2 ANTIBODY (2) Nonreactive Nonreactive (BEAKER) (test gtla=5059) BASIC METABOLIC [id number] 04:37:00 Test Item Value Reference Range Comments SODIUM (BEAKER) (test 138 meq/L 136-145 eupd=071) POTASSIUM (BEAKER) (test 3.9 meq/L 3.5-5.1 vxgi=852) CHLORIDE (BEAKER) (test 106 meq/L 98-107 giqt=226) CO2 (BEAKER) (test 22 meq/L 22-29 vupj=948) BLOOD UREA NITROGEN 23 mg/dL 7-21 (BEAKER) (test hzhy=763) CREATININE (BEAKER) (test 0.89 mg/dL 0.57-1.25 sdks=814) GLUCOSE RANDOM (BEAKER) 163 mg/dL 70-105 (test fvhd=097) CALCIUM (BEAKER) (test 9.6 mg/dL 8.4-10.2 vzhg=621) EGFR (BEAKER) (test mL/min/1.73 sq m INSUFFICIENT CLINICAL DATA ndsf=4494) TO CALCULATE ESTIMATED GFR. CBC W/PLT COUNT & AUTO [id number] 04:21:00 Test Item Value Reference Range Comments WHITE BLOOD CELL COUNT (BEAKER) (test izxv=080) 11.3 K/ L 3.5-10.5 RED BLOOD CELL COUNT (BEAKER) (test aend=967) 4.27 M/ L 4.63-6.08 HEMOGLOBIN (BEAKER) (test tqhq=973) 14.4 GM/DL 13.7-17.5 HEMATOCRIT (BEAKER) (test gdgo=287) 40.9 % 40.1-51.0 MEAN CORPUSCULAR VOLUME (BEAKER) (test wsdq=534) 95.8 fL 79.0-92.2 MEAN CORPUSCULAR HEMOGLOBIN (BEAKER) (test 33.7 pg 25.7-32.2 cgqn=224) MEAN CORPUSCULAR HEMOGLOBIN CONC (BEAKER) (test 35.2 GM/DL 32.3-36.5 wijn=131) RED CELL DISTRIBUTION WIDTH (BEAKER) (test 12.2 % 11.6-14.4 aseu=036) PLATELET COUNT (BEAKER) (test womq=185) 269 K/CU MM 150-450 MEAN PLATELET VOLUME (BEAKER) (test edwx=122) 9.4 fL 9.4-12.4 NUCLEATED RED BLOOD CELLS (BEAKER) (test 0 /100 WBC 0-0 wukv=359) NEUTROPHILS RELATIVE PERCENT (BEAKER) (test 91 % aike=367) LYMPHOCYTES RELATIVE PERCENT (BEAKER) (test 5 % umno=251) MONOCYTES RELATIVE PERCENT (BEAKER) (test 3 % qmyj=188) EOSINOPHILS RELATIVE PERCENT (BEAKER) (test 0 % yopa=799) BASOPHILS RELATIVE PERCENT (BEAKER) (test 0 % tald=277) NEUTROPHILS ABSOLUTE COUNT (BEAKER) (test 10.28 K/ L 1.78-5.38 bksp=613) LYMPHOCYTES ABSOLUTE COUNT (BEAKER) (test 0.61 K/ L 1.32-3.57 ebwk=049) MONOCYTES ABSOLUTE COUNT (BEAKER) (test 0.32 K/ L 0.30-0.82 efvx=321) EOSINOPHILS ABSOLUTE COUNT (BEAKER) (test 0.00 K/ L 0.04-0.54 oacp=159) BASOPHILS ABSOLUTE COUNT (BEAKER) (test 0.01 K/ L 0.01-0.08 tqlp=194) IMMATURE GRANULOCYTES-RELATIVE PERCENT (BEAKER) 0 % 0-1 (test xusd=6668) RAD, CHEST, 1 VIEW, NON [id number] 15:38:00Post-intubationReason for exam:-& gt;dyspneaShould this be performed at the bedside?->YesFINAL REPORT Chest, one view HISTORY: Dyspnea COMPARISON: None. DISCUSSION: Lungs are clear without focal consolidation. Cardiomediastinal silhouette is unremarkable. No acute osseous abnormality. No pleural effusion or pneumothorax. Visualized portions of the upper abdomen are unremarkable. IMPRESSION: No acute cardiopulmonary abnormality. Signed: Shiraz [place] Verified Date/Time: 12/28/2017 15:38:07 Reading Location: [facility] C013Y CT Body Reading Room [id number] 15:13:00 Test Item Value Reference Range Comments PARTIAL THROMBOPLASTIN TIME (BEAKER) (test 32.6 seconds 22.5-36.0 vlyi=763) PROTHROMBIN [id number] 15:12:00 Test Item Value Reference Range Comments PROTIME (BEAKER) (test mnmz=372) 14.3 seconds 11.7-14.7 INR (BEAKER) (test tqgv=518) 1.1 <=5.9 RECOMMENDED COUMADIN/WARFARIN INR THERAPY RANGESSTANDARD DOSE: 2.0 - 3.0 Includes: PROPHYLAXIS forvenous thrombosis, systemic embolization; TREATMENT for venous thrombosis and/or pulmonary embolus.HIGH RISK: Target INR is 2.5-3.5 for patients with mechanical heart valves.
--- OUTSIDE RECORDS SUMMARY | 2019-01-18 09:24 | XMS REPORT | Clinical Summary ---
:1970 Author Organization [facility] Address [address] [place] [address] Care Team Providers Name Role Phone Unavailable Primary Care Provider Unavailable Allergies No Known Allergies Medications No known medications Active Problems Problem Noted Date Pharyngitis 12/29/2017 Uvular edema 12/28/2017 Social History Tobacco Use Types Packs/Day Years Used Date Never Smoker Smokeless Tobacco: Never Used Sex Assigned at Date Recorded Not on file Job Start Date Occupation Industry Not on file Not on file Not on file Travel History Travel Start Travel End No recent travel history available. Last Filed Vital Signs Not on file Plan of Treatment Not on file Results Not on fileafter 01/17/2018 Advance Directives For more information, please contact:[facility] [place], [place] [phone] Code Status Date Activated Date Inactivated Comments Full Code 12/28/2017 2:26 PM 12/29/2017 3:26 PM This code status was determined by: Patient
--- NOTE | 2019-01-18 11:03 | RAD REPORT ---
EXAM DESCRIPTION: RAD - Knee Left 3 View - 01/18/2019 10:51 am CLINICAL HISTORY: Left knee pain FINDINGS: No acute fracture or dislocation is seen. Osteoporosis Minimal osteoarthritis
--- NOTE | 2019-01-18 11:10 | ER ---
Nurse's Notes [facility] Name: Jacques Oropeza Age: 48 yrs Sex: Male : 1970 Arrival Date: 01/18/2019 Time: 09:24 Bed 10 Private MD: Diagnosis: Pain in left knee;Osteoarthritis of knee-Left Presentation: 01/18 09:55 Presenting complaint: Patient states: left knee pain X 3-4 days, denies injury but has iw been working out a lot more. Transition of care: patient was not received from another setting of care. Onset of symptoms was January 15, 2019. Risk Assessment: Do you want to hurt yourself or someone else? Patient reports no desire to harm self or others. Initial Sepsis Screen: Does the patient meet any 2 criteria? No. Patient's initial sepsis screen is negative. Does the patient have a suspected source of infection? No. Patient's initial sepsis screen is negative. Care prior to arrival: None. 09:55 Method Of Arrival: Ambulatory iw 09:55 Acuity: BRODY 4 iw Triage Assessment: 11:35 General: Appears in no apparent distress. Behavior is calm, cooperative. iw Historical: - Allergies: 09:57 No Known Allergies; iw - Home Meds: 09:57 None [Active]; iw - PMHx: 09:57 None; iw - PSHx: 09:57 heel-left; iw - Immunization history:: Adult Immunizations unknown. - Social history:: Smoking status: Patient uses tobacco products. - Ebola Screening: : Patient negative for fever greater than or equal to 101.5 degrees Fahrenheit, and additional compatible Ebola Virus Disease symptoms Patient denies exposure to infectious person Patient denies travel to an Ebola-affected area in the 21 days before illness onset No symptoms or risks identified at this time. Screenin:00 Abuse screen: Denies threats or abuse. Denies injuries from another. Nutritional iw screening: No deficits noted. Tuberculosis screening: No symptoms or risk factors identified. Fall Risk None identified. Assessment: 10:00 General: Appears in no apparent distress. Behavior is calm, cooperative. Pain: iw Complains of pain in left knee. Neuro: Level of Consciousness is awake, alert, obeys commands, Moves all extremities. Cardiovascular: Patient's skin is warm and dry. Respiratory: Respiratory effort is even, unlabored. Derm: Skin is intact, is healthy with good turgor. Musculoskeletal: Range of motion: intact in all extremities, Reports pain in left knee. Vital Signs: 09:57 BP 137 / 84; Pulse 74; Resp 16; Temp 97.3; Pulse Ox 98% on R/A; Weight 83.91 kg; Height iw 5 ft. 6 in. (167.64 cm); Pain 8/10; 09:57 Body Mass Index 29.86 (83.91 kg, 167.64 cm) iw ED Course: 09:24 Patient arrived in ED. as 09:56 Triage completed. iw 09:57 Arm band placed on. iw 10:00 Patient has correct armband on for positive identification. iw 10:21 Anjel Hernandez NP is PHCP. pm1 10:21 Geraldo Warren MD is Attending Physician. pm1 10:49 Knee Left 3 View XRAY In Process Unspecified. EDMS 10:53 Fely Sanchez RN is Primary Nurse. iw 11:37 No provider procedures requiring assistance completed. Patient did not have IV access iw during this emergency room visit. Administered Medications: 11:17 Drug: Ibuprofen 600 mg Route: PO; iw Outcome: 11:09 Discharge ordered by . pm1 11:37 Discharged to home ambulatory. iw 11:37 Condition: good 11:37 Discharge instructions given to patient, Instructed on discharge instructions, follow up and referral plans. Demonstrated understanding of instructions, follow-up care, medications, Prescriptions given X 1. 11:38 Patient left the ED. iw Signatures: Dispatcher [employer] EDMS Rebecca Claire as Fely Sanchez RN RN iw Anjel Hernandez NP [employer] pm1
--- NOTE | 2019-01-18 11:10 | EDPHYS ---
Physician Documentation [facility] Name: Jacques Oropeza Age: 48 yrs Sex: Male : 1970 Arrival Date: 01/18/2019 Time: 09:24 Bed 10 Private MD: ED Physician Geraldo Warren HPI: 01/18 10:43 This 48 yrs old Male presents to ER via Ambulatory with complaints of Left pm1 Knee Pain. 10:43 The patient presents with pain, that is acute. The complaints affect the left knee. pm1 Context: The problem was sustained at home, resulted from possibly from exercise, running and squats, the patient can fully bear weight, Problem is a result from a previous injury: Patient seen in the ER for similar pain in April 2018. Patient reports that the left knee pain was above his patella last time and this time it is below his patella. He did not get his left knee reevaluated, it just resolved on its own. Onset: The symptoms/episode began/occurred 4 day(s) ago. Modifying factors: The symptoms are alleviated by remaining still, the symptoms are aggravated by weight bearing, bending knee. Associated signs and symptoms: Pertinent negatives calf tenderness, fever, numbness, swelling, tingling, warmth. Treatment prior to arrival includes: no previous treatment. Severity of symptoms: in the emergency department the symptoms are unchanged. The patient has not recently seen a physician. Historical: - Allergies: 09:57 No Known Allergies; iw - Home Meds: 09:57 None [Active]; iw - PMHx: 09:57 None; iw - PSHx: 09:57 heel-left; iw - Immunization history:: Adult Immunizations unknown. - Social history:: Smoking status: Patient uses tobacco products. - Ebola Screening: : Patient negative for fever greater than or equal to 101.5 degrees Fahrenheit, and additional compatible Ebola Virus Disease symptoms Patient denies exposure to infectious person Patient denies travel to an Ebola-affected area in the 21 days before illness onset No symptoms or risks identified at this time. ROS: 10:43 Constitutional: Negative for fever, chills, and weight loss, Eyes: Negative for injury, pm1 pain, redness, and discharge, ENT: Negative for injury, pain, and discharge, Neck: Negative for injury, pain, and swelling, Cardiovascular: Negative for chest pain, palpitations, and edema, Respiratory: Negative for shortness of breath, cough, wheezing, and pleuritic chest pain, Abdomen/GI: Negative for abdominal pain, nausea, vomiting, diarrhea, and constipation, Back: Negative for injury and pain, : Negative for injury, bleeding, discharge, and swelling. 10:43 Skin: Negative for injury, rash, and discoloration, Neuro: Negative for headache, weakness, numbness, tingling, and seizure. 10:43 MS/extremity: Positive for pain, of the left knee, Negative for contusion, decreased range of motion, deformity, paresthesias. Exam: 10:43 Constitutional: This is a well developed, well nourished patient who is awake, alert, pm1 and in no acute distress. Head/Face: Normocephalic, atraumatic. Neck: Trachea midline, no thyromegaly or masses palpated, and no cervical lymphadenopathy. Supple, full range of motion without nuchal rigidity, or vertebral point tenderness. No Meningismus. Chest/axilla: Normal chest wall appearance and motion. Nontender with no deformity. No lesions are appreciated. Cardiovascular: Regular rate and rhythm with a normal S1 and S2. No gallops, murmurs, or rubs. Normal PMI, no JVD. No pulse deficits. Respiratory: Lungs have equal breath sounds bilaterally, clear to auscultation and percussion. No rales, rhonchi or wheezes noted. No increased work of breathing, no retractions or nasal flaring. Abdomen/GI: Soft, non-tender, with normal bowel sounds. No distension or tympany. No guarding or rebound. No evidence of tenderness throughout. Back: No spinal tenderness. No costovertebral tenderness. Full range of motion. Skin: Warm, dry with normal turgor. Normal color with no rashes, no lesions, and no evidence of cellulitis. 10:43 Musculoskeletal/extremity: Extremities: grossly normal except: noted in the below left patella: tenderness, There is no evidence of decreased ROM, deformity, ecchymosis, erythema, ROM: Circulation is intact in all extremities. Pulses: noted to be 2+ in the left posterior tibial artery and left dorsalis pedis artery, DVT Exam: No signs of deep vein thrombosis. no pain, no swelling, no tenderness, negative Homans' sign noted on exam, no appreciated bluish discoloration, no erythema, no increased warmth. 10:43 Neuro: Orientation: is normal, Motor: is normal, moves all fours, strength is normal. Vital Signs: 09:57 BP 137 / 84; Pulse 74; Resp 16; Temp 97.3; Pulse Ox 98% on R/A; Weight 83.91 kg; Height iw 5 ft. 6 in. (167.64 cm); Pain 8/10; 09:57 Body Mass Index 29.86 (83.91 kg, 167.64 cm) iw MDM: 10:31 Patient medically screened. pm1 11:08 Data reviewed: vital signs. Data interpreted: Pulse oximetry: on room air is 98 %. pm1 Interpretation: normal. Counseling: I had a detailed discussion with the patient and/or guardian regarding: the historical points, exam findings, and any diagnostic results supporting the discharge/admit diagnosis, radiology results, the need for outpatient follow up, a orthopedic surgeon, to return to the emergency department if symptoms worsen or persist or if there are any questions or concerns that arise at home. 11:13 ED course: Patient offered crutches and knee immobilizer. Patient refused. Patient said pm1 that he is able to walk and would prefer joe wrap. Advised the patient to stop running and squatting until reevaluated by orthopedics and pain is resolved. 01/18 10:35 Order name: Knee Left 3 View XRAY; Complete Time: 11:09 pm1 01/18 11:13 Order name: Joe wrap-joint; Complete Time: 11:37 pm1 Administered Medications: 11:17 Drug: Ibuprofen 600 mg Route: PO; iw Disposition: 13:43 Co-signature as Attending Physician, Geraldo Warren MD. gs Disposition: 01/18/19 11:09 Discharged to Home. Impression: Pain in left knee, Osteoarthritis of knee - Left. - Condition is Stable. - Discharge Instructions: Elastic Bandage and RICE, Joint Pain, Arthritis, Musculoskeletal Pain, Knee Pain. - Medication Reconciliation Form, Thank You Letter, Antibiotic Education, Prescription Opioid Use form. - Follow up: Emergency Department; When: As needed; Reason: Worsening of condition. Follow up: Private Physician; When: 2 - 3 days; Reason: Recheck today's complaints, Continuance of care, Re-evaluation by your physician. - Problem is new. - Symptoms have improved. Signatures: Dispatcher [employer] Fely Abrams RN RN iw Anjel Hernandez, STORMY EXTRUSION TECHNICIAN pm1 Geraldo Warren MD MD gs Corrections: (The following items were deleted from the chart) 11:38 11:09 01/18/2019 11:09 Discharged to Home. Impression: Pain in left knee; iw Osteoarthritis of knee - Left. Condition is Stable. Forms are Medication Reconciliation Form, Thank You Letter, Antibiotic Education, Prescription Opioid Use. Follow up: Emergency Department; When: As needed; Reason: Worsening of condition. Follow up: Private Physician; When: 2 - 3 days; Reason: Recheck today's complaints, Continuance of care, Re-evaluation by your physician. Problem is new. Symptoms have improved. pm1
[2019-01-18] MEDS ORDERED: IBUPROFEN 200 MG TAB PO ONE (11:28)
== END 2019-01-18 11:38 | disposition home or self-care (01) ==
LOC: ER 09:21
DX: M17.12 Unilateral primary osteoarthritis, left knee (principal); Z72.0 Tobacco use
CPT/HCPCS: 99283

== ENCOUNTER 2019-01-19 16:44 | Emergency (ER) | payer SELFPAY ==
--- NOTE | 2019-01-19 18:15 | ER ---
Nurse's Notes [facility] Name: Jacques Oropeza Age: 48 yrs Sex: Male : 1970 Arrival Date: 01/19/2019 Time: 16:49 Bed Waiting Private MD: Diagnosis: Presentation: 01/19 17:06 Presenting complaint: Patient states: LEFT KNEE PAIN, SEEN Y/D FOR SAME. Transition of bp care: patient was not received from another setting of care. Onset of symptoms is unknown. Risk Assessment: Do you want to hurt yourself or someone else? Patient reports no desire to harm self or others. Initial Sepsis Screen: Does the patient meet any 2 criteria? No. Patient's initial sepsis screen is negative. Does the patient have a suspected source of infection? No. Patient's initial sepsis screen is negative. Care prior to arrival: None. 17:06 Method Of Arrival: Wheelchair bp 17:06 Acuity: BRODY 5 bp Triage Assessment: 17:07 General: Appears in no apparent distress. comfortable, Behavior is cooperative, bp appropriate for age, anxious. Pain: Complains of pain in left knee. Historical: - Allergies: 17:07 No Known Allergies; bp - Home Meds: 17:07 None [Active]; bp - PMHx: 17:07 None; bp - Immunization history:: Adult Immunizations up to date. - Social history:: Smoking status: . - Ebola Screening: : No symptoms or risks identified at this time. Assessment: 18:05 Reassessment: called patient from [facility] no answer. Pt not seen in ER lobby, restroom or parking lot. 18:13 Reassessment: Pt called from [facility], no answer. ss Vital Signs: 17:07 BP 111 / 74; Pulse 89; Resp 20; Temp 98; Pulse Ox 97% ; Weight 79.83 kg; Height 5 ft. 6 bp in. (167.64 cm); 17:07 Body Mass Index 28.41 (79.83 kg, 167.64 cm) bp ED Course: 16:49 Patient arrived in ED. mr 17:06 Triage completed. bp 17:07 Arm band placed on. bp 18:00 Juaquin Phelan MD is Attending Physician. rn 18:14 No provider procedures requiring assistance completed. Patient did not have IV access ss during this emergency room visit. Administered Medications: No medications were administered Outcome: 18:14 Eloped from waiting room, before seeing physician ss 18:14 Patient left the ED. ss Signatures: Desirae Watson Roman, MD MD rn Smirch, Shelby, RN RN Ortiz Harvey RN RN bp
--- OUTSIDE RECORDS SUMMARY | 2019-01-19 18:20 | XMS REPORT | Clinical Summary ---
:1970 Author Organization [facility] Address [address] [place] [address] Care Team Providers Name Role Phone Unavailable [...] Not on file Results Not on fileafter 01/18/2018 Advance Directives For more information, please contact:[facility] [place], [place] [phone] Code Status Date Activated Date Inactivated Comments Full Code 12/28/2017 2:26 PM 12/29/2017 3:26 PM This code status was determined by: Patient
--- OUTSIDE RECORDS SUMMARY | 2019-01-19 18:20 | XMS REPORT ---
:1970 [facility] Address [facility] [address] [place] [id number] Care Team Providers Name Role Phone BALJINDER [...] Range Comments STREP A ANTIGEN (BEAKER) (test asgd=480) Negative Negative HIV-1 ANTIGEN WITH HIV-1/2 [id number] 08:48:00 Test Item Value Reference Range Comments HIV-1 ANTIGEN WITH HIV 1\T\2 ANTIBODY (2) Nonreactive Nonreactive (BEAKER) (test ppbf=1885) BASIC METABOLIC [id number] 04:37:00 Test Item Value Reference Range Comments SODIUM (BEAKER) (test 138 meq/L 136-145 fepo=050) POTASSIUM (BEAKER) (test 3.9 meq/L 3.5-5.1 sari=014) CHLORIDE (BEAKER) (test 106 meq/L 98-107 haur=291) CO2 (BEAKER) (test 22 meq/L 22-29 yxlq=871) BLOOD UREA NITROGEN 23 mg/dL 7-21 (BEAKER) (test ssfc=359) CREATININE (BEAKER) (test 0.89 mg/dL 0.57-1.25 jrff=610) GLUCOSE RANDOM (BEAKER) 163 mg/dL 70-105 (test bthc=125) CALCIUM (BEAKER) (test 9.6 mg/dL 8.4-10.2 ohtd=908) EGFR (BEAKER) (test mL/min/1.73 sq m INSUFFICIENT CLINICAL DATA bslg=8389) TO CALCULATE ESTIMATED GFR. CBC W/PLT COUNT & AUTO [id number] 04:21:00 Test Item Value Reference Range Comments WHITE BLOOD CELL COUNT (BEAKER) (test dvfy=216) 11.3 K/ L 3.5-10.5 RED BLOOD CELL COUNT (BEAKER) (test tnnu=291) 4.27 M/ L 4.63-6.08 HEMOGLOBIN (BEAKER) (test pkxa=867) 14.4 GM/DL 13.7-17.5 HEMATOCRIT (BEAKER) (test qngy=246) 40.9 % 40.1-51.0 MEAN CORPUSCULAR VOLUME (BEAKER) (test ybgt=046) 95.8 fL 79.0-92.2 MEAN CORPUSCULAR HEMOGLOBIN (BEAKER) (test 33.7 pg 25.7-32.2 earg=215) MEAN CORPUSCULAR HEMOGLOBIN CONC (BEAKER) (test 35.2 GM/DL 32.3-36.5 fgpi=824) RED CELL DISTRIBUTION WIDTH (BEAKER) (test 12.2 % 11.6-14.4 ggqx=679) PLATELET COUNT (BEAKER) (test rhcf=668) 269 K/CU MM 150-450 MEAN PLATELET VOLUME (BEAKER) (test elku=878) 9.4 fL 9.4-12.4 NUCLEATED RED BLOOD CELLS (BEAKER) (test 0 /100 WBC 0-0 ueqb=747) NEUTROPHILS RELATIVE PERCENT (BEAKER) (test 91 % hwba=704) LYMPHOCYTES RELATIVE PERCENT (BEAKER) (test 5 % dtdt=720) MONOCYTES RELATIVE PERCENT (BEAKER) (test 3 % tjmt=469) EOSINOPHILS RELATIVE PERCENT (BEAKER) (test 0 % djhq=017) BASOPHILS RELATIVE PERCENT (BEAKER) (test 0 % dscq=354) NEUTROPHILS ABSOLUTE COUNT (BEAKER) (test 10.28 K/ L 1.78-5.38 hwrg=037) LYMPHOCYTES ABSOLUTE COUNT (BEAKER) (test 0.61 K/ L 1.32-3.57 pfvi=998) MONOCYTES ABSOLUTE COUNT (BEAKER) (test 0.32 K/ L 0.30-0.82 qopq=660) EOSINOPHILS ABSOLUTE COUNT (BEAKER) (test 0.00 K/ L 0.04-0.54 fysv=590) BASOPHILS ABSOLUTE COUNT (BEAKER) (test 0.01 K/ L 0.01-0.08 xdik=307) IMMATURE GRANULOCYTES-RELATIVE PERCENT (BEAKER) 0 % 0-1 (test ihoy=2262) RAD, CHEST, 1 VIEW, NON [id number] 15:38:00Post-intubationReason for exam:-& gt;dyspneaShould this be performed at the bedside?->YesFINAL REPORT Chest, one view HISTORY: Dyspnea COMPARISON: None. DISCUSSION: Lungs are clear without focal consolidation. Cardiomediastinal silhouette is unremarkable. No acute osseous abnormality. No pleural effusion or pneumothorax. Visualized portions of the upper abdomen are unremarkable. IMPRESSION: No acute cardiopulmonary abnormality. Signed: Shiraz [place] Verified Date/Time: 12/28/2017 15:38:07 Reading Location: [facility] C013Y CT Body Reading Room [id number] 15:13:00 Test Item Value Reference Range Comments PARTIAL THROMBOPLASTIN TIME (BEAKER) (test 32.6 seconds 22.5-36.0 cddc=869) PROTHROMBIN [id number] 15:12:00 Test Item Value Reference Range Comments PROTIME (BEAKER) (test rgrg=405) 14.3 seconds 11.7-14.7 INR (BEAKER) (test rymi=706) 1.1 <=5.9 RECOMMENDED COUMADIN/WARFARIN INR THERAPY RANGESSTANDARD DOSE: 2.0 - 3.0 Includes: PROPHYLAXIS forvenous thrombosis, systemic embolization; TREATMENT for venous thrombosis and/or pulmonary embolus.HIGH RISK: Target INR is 2.5-3.5 for patients with mechanical heart valves.
== END 2019-01-19 18:14 | disposition left against medical advice (07) ==
LOC: ER 16:44
DX: M25.562 Pain in left knee (principal); Z53.21 Procedure and treatment not carried out due to patient leaving prior to being seen by health care provider
CPT/HCPCS: 99281

== ENCOUNTER 2019-04-28 11:08 | Emergency (ER) | payer SELFPAY ==
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
[2019-04-28 12:57] LABS: Absolute Lymphocytes (CBC) 1.5 K/uL (0.7-4.9); Basophils % 0.6 % (0-1.3); Lymphocytes % 20.7 % (15.3-44.8); MPV 7.7 fL (7.6-11.3); RBC Red Blood Cell Count 4.33 M/uL (4.33-5.43)
[2019-04-28] MEDS ORDERED: CEFTRIAXONE 1000 MG/VIAL ONE (12:57)
[2019-04-28] MEDS ORDERED: NA CHLORIDE 0.9% 100 ML IV ONE (12:57)
[2019-04-28 13:00] LABS: Protime INR 1.01
[2019-04-28 13:21] LABS: Bilirubin Total 0.5 mg/dL (0.2-1.0); Potassium 3.8 mmol/L (3.5-5.1); Protein, Total 7.2 g/dL (6.4-8.2)
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
[2019-04-28 16:19] VITALS: TEMP 97.1
[2019-04-28 16:23] VITALS: BP 120/86; O2SAT 97
== END 2019-04-28 16:08 | disposition home or self-care (01) ==
LOC: ER 11:08
DX: S02.31XA Fracture of orbital floor, right side, initial encounter for closed fracture (principal); W50.0XXA Accidental hit or strike by another person, initial encounter; Y93.9 Activity, unspecified; Y92.89 Other specified places as the place of occurrence of the external cause
CPT/HCPCS: 36415; 70450; 70486; 72125; 76377; 80053; 85025; 85610; 96374; 99284

== ENCOUNTER 2019-11-24 18:06 | Emergency (ER) | payer SELFPAY ==
--- OUTSIDE RECORDS SUMMARY | 2019-11-24 18:08 | XMS REPORT ---
:1970 Author Organization [facility] t Address [address] [place] [address] Care Team Providers Name Role Phone AMY LENTZJOANAMark SILVERIOLoly YOUNGER Unavailable Unavailable Problems This patient has no known problems. Allergies, Adverse Reactions, Alerts This patient has no known allergies or adverse reactions. Medications This patient has no known medications. Results Test Description Test Time Test Comments Text Results Atomic Results Result Comments RAPID STREP A SCREEN 2017-12-29 09:58:00 Test Item Value Reference Range Comments STREP A ANTIGEN (BEAKER) (test code = 556) Negative Negat rebeca HIV-1 ANTIGEN WITH HIV-1/2 [id number] 08:48:00 Test Item Value Reference Range Comments HIV-1 ANTIGEN WITH HIV 1\T\2 ANTIBODY (2) Nonreactive Nonrea ctive (BEAKER) (test code = 2586) BASIC METABOLIC [id number] 04:37:00 Test Item Value Reference Range Comments SODIUM (BEAKER) (test 138 meq/L 136-145 code = 381) POTASSIUM (BEAKER) (test 3.9 meq/L 3.5-5.1 code = 379) CHLORIDE (BEAKER) (test 106 meq/L 98-107 code = 382) CO2 (BEAKER) (test code = 22 meq/L 22-29 355) BLOOD UREA NITROGEN 23 mg/dL 7-21 (BEAKER) (test code = 354) CREATININE (BEAKER) (test 0.89 mg/dL 0.57-1.25 code = 358) GLUCOSE RANDOM (BEAKER) 163 mg/dL 70-105 (test code = 652) CALCIUM (BEAKER) (test 9.6 mg/dL 8.4-10.2 code = 697) EGFR (BEAKER) (test code mL/min/1.73 sq m INSUF FICIENT CLINICAL DATA = 1092) TO CALCULATE EST IMATED GFR. CBC W/PLT COUNT & AUTO [id number] 04:21:00 Test Item Value Reference Range Comments WHITE BLOOD CELL COUNT (BEAKER) (test code = 11.3 K/ L 3.5 -10.5 775) RED BLOOD CELL COUNT (BEAKER) (test code = 761) 4.27 M/ L 4.63-6.08 HEMOGLOBIN (BEAKER) (test code = 410) 14.4 GM/DL 13.7-17.5 HEMATOCRIT (BEAKER) (test code = 411) 40.9 % 40.1-51.0 MEAN CORPUSCULAR VOLUME (BEAKER) (test code = 95.8 fL 79 .0-92.2 753) MEAN CORPUSCULAR HEMOGLOBIN (BEAKER) (test code 33.7 pg 25.7-32.2 = 751) MEAN CORPUSCULAR HEMOGLOBIN CONC (BEAKER) (test 35.2 GM/DL 32.3-36.5 code = 752) RED CELL DISTRIBUTION WIDTH (BEAKER) (test code 12.2 % 11.6-14.4 = 412) PLATELET COUNT (BEAKER) (test code = 756) 269 K/CU MM 150-45 0 MEAN PLATELET VOLUME (BEAKER) (test code = 754) 9.4 fL 9.4-12.4 NUCLEATED RED BLOOD CELLS (BEAKER) (test code = 0 /100 WBC 0-0 413) NEUTROPHILS RELATIVE PERCENT (BEAKER) (test code 91 % = 429) LYMPHOCYTES RELATIVE PERCENT (BEAKER) (test code 5 % = 430) MONOCYTES RELATIVE PERCENT (BEAKER) (test code = 3 % 431) EOSINOPHILS RELATIVE PERCENT (BEAKER) (test code 0 % = 432) BASOPHILS RELATIVE PERCENT (BEAKER) (test code = 0 % 437) NEUTROPHILS ABSOLUTE COUNT (BEAKER) (test code = 10.28 K/ L 1.78-5.38 670) LYMPHOCYTES ABSOLUTE COUNT (BEAKER) (test code = 0.61 K/ L 1.32-3.57 414) MONOCYTES ABSOLUTE COUNT (BEAKER) (test code = 0.32 K/ L 0 .30-0.82 415) EOSINOPHILS ABSOLUTE COUNT (BEAKER) (test code = 0.00 K/ L 0.04-0.54 416) BASOPHILS ABSOLUTE COUNT (BEAKER) (test code = 0.01 K/ L 0 .01-0.08 417) IMMATURE GRANULOCYTES-RELATIVE PERCENT (BEAKER) 0 % 0-1 (test code = 2801) RAD, CHEST, 1 VIEW, NON [id number] 15:38:00Post-intubationReason for exam:- >dyspneaShould this be performed at the bedside?->YesFINAL REPORT Chest, one view HISTORY: Dyspnea COMPARISON: None. DISCUSSION: Ani ngs are clear without focal consolidation. Cardiomediastinal silhouette is unremarkable. No acute osseous abnormality. No pleural effusion or pneumothorax. Visualized portions of the upper abdomen are unremarkable. IMPRESSION: No acute cardiopulmonary abnormality. Signed: Shiraz Culp MDReport Verified Date/Time: 12/28/2017 15:38:07 Reading Location: [facility] [id number] CT Body Reading Room APTT 2017-12-28 15:13:00 Test Item Value Reference Range Comments PARTIAL THROMBOPLASTIN TIME (BEAKER) (test code 32.6 seconds 22.5-36.0 = 760) PROTHROMBIN [id number] 15:12:00 Test Item Value Reference Range Comments PROTIME (BEAKER) (test code = 759) 14.3 seconds 11.7-14.7 INR (BEAKER) (test code = 370) 1.1 <=5.9 RECOMMENDED COUMADIN/WARFARIN INR THERAPY RANGESSTANDARD DOSE: 2.0 - 3.0 Includes: PROPHYLAXIS forvenous thrombosis, systemic embolization; TREATMENT for venous thrombosis and/or pulmonary embolus.HIGH RISK: Target INR is 2.5-3.5 for patients with mechanical heart valves.
[2019-11-24] MEDS ORDERED: LORazepam 2 MG/ML VIAL ONE (19:49)
[2019-11-24] MEDS ORDERED: NA CHLORIDE 0.9% 1,000 ML ONE (19:49)
[2019-11-24 19:53] LABS: Protime INR 0.99
[2019-11-24 19:54] LABS: Hematocrit 45.4 % (39.6-49.0); RBC Red Blood Cell Count 4.73 M/uL (4.33-5.43)
[2019-11-24 19:55] LABS: Absolute Lymphocytes (CBC) 2.5 K/uL (0.7-4.9); Basophils % 0.6 % (0-1.3); Lymphocytes % 26.1 % (15.3-44.8); MPV 7.8 fL (7.6-11.3)
--- NOTE | 2019-11-24 20:00 | RAD REPORT ---
EXAM DESCRIPTION: RAD - Chest Single View - 11/24/2019 7:52 pm CLINICAL HISTORY: CONGESTION Chest pain. COMPARISON: No comparisons FINDINGS: Portable technique limits examination quality. The lungs are grossly clear. The heart is normal in size. No displaced fractures. IMPRESSION: No acute intrathoracic process suspected.
[2019-11-24 20:13] LABS: ALT/SGPT 35 U/L (12-78); AST/SGOT 22 U/L (15-37); Albumin 4.2 g/dL (3.4-5.0); Alkaline Phosphatase 75 U/L (45-117); BUN Blood Urea Nitrogen 18 mg/dL (7-18); Bicarbonate 25 mmol/L (21-32); Bilirubin Direct < 0.1 mg/dL (0-0.2); Creatine Phosphokinase 574 U/L (39-308); Glucose Level 99 mg/dL (74-106); Lipase 123 U/L (73-393); Magnesium 2.5 mg/dL (1.8-2.4); NT PRO-BNP 15 pg/mL (<125); Potassium 4.1 mmol/L (3.5-5.1); Protein, Total 7.7 g/dL (6.4-8.2); Sodium Level 139 mmol/L (136-145); Troponin (Emerg Dept Use Only) < 0.02 ng/mL (0.0-0.045)
[2019-11-24 20:26] LABS: Bilirubin Total 0.3 mg/dL (0.2-1.0)
--- NOTE | 2019-11-24 23:34 | ER ---
Nurse's Notes [facility] Name: Jacques Oropeza Age: 49 yrs Sex: Male : 1970 Arrival Date: 11/24/2019 Time: 18:08 Bed 30 Private MD: Diagnosis: Palpitations Presentation: 11/23 18:29 Chief complaint: Patient states: Sudden onset of chills, dizzy, SOB, sweaty while ll1 working today at 1300. Coronavirus screen: Proceed with normal triage. Patient denies a cough. Patient reports shortness of breath or difficulty breathing. Patient denies measured and/or subjective temperature greater than 100.4F prior to today's visit. Patient denies travel on a cruise ship or to a country the [facility] currently lists as an affected area. Patient denies contact with known and/or suspected case of COVID-19. Ebola Screen: Patient denies travel to an Ebola-affected area in the 21 days before illness onset. No acute neurological deficit is noted. Initial Sepsis Screen: Does the patient meet any 2 criteria? No. Patient's initial sepsis screen is negative. Does the patient have a suspected source of infection? No. Patient's initial sepsis screen is negative. Risk Assessment: Do you want to hurt yourself or someone else? Patient reports no desire to harm self or others. Onset of symptoms was November 24, 2019. 18:29 Method Of Arrival: Ambulatory [facility] 18:29 Acuity: BORDY 3 ll1 Stroke Activation: Symptom onset > 6 hours Physician: Stroke Attending; Name: ; Notified At: ; Arrived At: Physician: Chief Stroke Resident; Name: ; Notified At: ; Arrived At: Physician: Stroke Resident; Name: ; Notified At: ; Arrived At: Physician: ED Attending; Name: ; Notified At: ; Arrived At: Physician: ED Resident; Name: ; Notified At: ; Arrived At: Historical: - Allergies: 18:33 No Known Drug Allergies; ll1 - PSHx: 18:33 foot surgery; ll1 - Immunization history:: Flu vaccine is not up to date. - Social history:: Smoking status: Patient reports the use of cigarette tobacco products, denies chronic smoking, but will smoke occasionally, Patient uses street drugs, marijuana, Patient/guardian denies using alcohol, Patient/guardian denies using street drugs, The patient lives alone. - Family history:: not pertinent. Screenin:00 Abuse screen: Denies threats or abuse. Nutritional screening: No deficits noted. jb4 Tuberculosis screening: No symptoms or risk factors identified. Fall Risk None identified. Assessment: 19:00 General: Appears in no apparent distress. comfortable, Behavior is calm, cooperative, jb4 appropriate for age, Pt reports feeling much better, and denies and weakness or dizziness.. Pain: Denies pain. Neuro: Level of Consciousness is awake, alert, obeys commands, Oriented to person, place, time, situation, Plsql Developer are equal bilaterally Moves all extremities. Full function Gait is steady, Speech is normal, Facial symmetry appears normal, Pupils are PERRLA, Intact. Cardiovascular: Patient's skin is warm and dry. Respiratory: Airway is patent Respiratory effort is even, unlabored, Respiratory pattern is regular, symmetrical. GI: No signs and/or symptoms were reported involving the gastrointestinal system. : No signs and/or symptoms were reported regarding the genitourinary system. EENT: No signs and/or symptoms were reported regarding the EENT system. Derm: Skin is intact, Skin is pink, warm \T\ dry. Musculoskeletal: Circulation, motion, and sensation intact. Range of motion: intact in all extremities. 20:00 Reassessment: Patient appears in no apparent distress at this time. Patient and/or jb4 family updated on plan of care and expected duration. Pain level reassessed. Patient is alert, oriented x 3, equal unlabored respirations, skin warm/dry/pink. Patient denies pain at this time. 21:00 Reassessment: Patient appears in no apparent distress at this time. Patient and/or jb4 family updated on plan of care and expected duration. Pain level reassessed. Patient is alert, oriented x 3, equal unlabored respirations, skin warm/dry/pink. Patient denies pain at this time. 22:00 Reassessment: Patient appears in no apparent distress at this time. Patient and/or jb4 family updated on plan of care and expected duration. Pain level reassessed. Patient is alert, oriented x 3, equal unlabored respirations, skin warm/dry/pink. Patient denies pain at this time. 23:00 Reassessment: Patient appears in no apparent distress at this time. Patient and/or jb4 family updated on plan of care and expected duration. Pain level reassessed. Patient is alert, oriented x 3, equal unlabored respirations, skin warm/dry/pink. Patient denies pain at this time. 23:00 Neuro: Level of Consciousness is awake, alert, obeys commands, Oriented to person, jb4 place, time, situation, Plsql Developer are equal bilaterally Moves all extremities. Full function Speech is normal, Facial symmetry appears normal, Pupils are PERRLA, Intact. 23:56 Reassessment: Patient appears in no apparent distress at this time. Patient and/or jb4 family updated on plan of care and expected duration. Pain level reassessed. Patient is alert, oriented x 3, equal unlabored respirations, skin warm/dry/pink. PT verbalized understanding of d/c and follow up instructions. Denies questions or concerns. Ambulated out of ED with steady gait. Patient denies pain at this time. Patient states feeling better. Vital Signs: 18:29 BP 119 / 63; Pulse 104; Resp 21; Temp 98.0; Pulse Ox 97% ; Weight 81.65 kg; Height 5 ll1 ft. 6 in. (167.64 cm); Pain 7/10; 20:00 BP 107 / 90; Pulse 94; Resp 16; Pulse Ox 98% on R/A; jb4 21:30 BP 121 / 98; Pulse 82; Resp 16; Pulse Ox 99% on R/A; jb4 22:15 BP 115 / 95; Pulse 82; Resp 16; Pulse Ox 97% on R/A; jb4 23:15 BP 110 / 84; Pulse 85; Resp 16; Pulse Ox 99% on R/A; jb4 18:29 Body Mass Index 29.05 (81.65 kg, 167.64 cm) ll1 ED Course: 18:08 Patient arrived in ED. as 18:31 Triage completed. ll1 18:33 Arm band placed on Patient placed back into lobby. Gait steady. ll1 19:00 Patient has correct armband on for positive identification. Bed in low position. Call jb4 light in reach. Side rails up X 1. Pulse ox on. NIBP on. 19:03 Vijay Leahy RN is Primary Nurse. jb4 19:03 Slime Emerson MD is Attending Physician. ma2 19:35 Initial lab(s) drawn, by me, sent to lab. Inserted saline lock: 22 gauge in right hand, jb4 using aseptic technique. Blood collected. 19:52 XRAY Chest (1 view) In Process Unspecified. EDMS 23:58 No provider procedures requiring assistance completed. IV discontinued, intact, jb4 bleeding controlled, No redness/swelling at site. Pressure dressing applied. Administered Medications: 19:49 Drug: Ativan 1 mg Route: IVP; Site: right hand; jb4 21:17 Follow up: Response: No adverse reaction; Marked relief of symptoms jb4 19:50 Drug: NS 0.9% 1000 ml Route: IV; Rate: 1 bolus; Site: right hand; jb4 20:50 Follow up: Response: No adverse reaction; IV Status: Completed infusion; IV Intake: jb4 1000ml Intake: 20:50 IV: 1000ml; Total: 1000ml. jb4 Outcome: 23:33 Discharge ordered by . ma2 23:58 Discharged to home ambulatory. jb4 23:58 Condition: stable 23:58 Discharge instructions given to patient, Instructed on discharge instructions, follow up and referral plans. Demonstrated understanding of instructions, follow-up care. 23:59 Patient left the ED. jb4 Signatures: Dispatcher [employer] EDMS Rebecca Claire James RN RN jb4 Slime Emerson MD MD ma2 Edson Montano RN RN ll1 Corrections: (The following items were deleted from the chart) 18:34 18:33 Arm band placed on Patient placed in an exam room, on a stretcher, [facility] ll1 23:04 19:00 Neuro: Level of Consciousness is awake, alert, obeys commands, Oriented to jb4 person, place, time, situation, jb4
--- NOTE | 2019-11-24 23:34 | EDPHYS ---
Physician Documentation [facility] Name: Jacques Oropeza Age: 49 yrs Sex: Male : 1970 Arrival Date: 11/24/2019 Time: 18:08 Bed 30 Private MD: ED Physician Slime Emerson HPI: 11/23 19:39 This 49 yrs old Male presents to ER via Ambulatory with complaints of ma2 Weakness, Dizziness. 19:39 Onset: The symptoms/episode began/occurred suddenly, 1 hour(s) ago. Associated signs ma2 and symptoms: Pertinent positives: dizziness, Pertinent negatives: chills, headache, paresthesias, seizure, double vision. Severity of symptoms: At their worst the symptoms were very mild in the emergency department the symptoms have resolved. Current symptoms: Currently, the patient is not experiencing any symptoms. he had an episode of dizziness and heart racing that resolved, no chest pain or any angina equivalent. no other symptoms. he drinks daily alcohol and smoked meth last night and has a lot of stresses at home . Historical: - Allergies: 18:33 No Known Drug Allergies; ll1 - PSHx: 18:33 foot surgery; ll1 - Immunization history:: Flu vaccine is not up to date. - Social history:: Smoking status: Patient reports the use of cigarette tobacco products, denies chronic smoking, but will smoke occasionally, Patient uses street drugs, marijuana, Patient/guardian denies using alcohol, Patient/guardian denies using street drugs, The patient lives alone. - Family history:: not pertinent. ROS: 19:39 Constitutional: Negative for fever, chills, and weight loss. ma2 19:39 All other systems are negative. Exam: 19:39 Constitutional: This is a well developed, well nourished patient who is awake, alert, ma2 and in no acute distress. Head/Face: Normocephalic, atraumatic. Eyes: Pupils equal round and reactive to light, extra-ocular motions intact. Lids and lashes normal. Conjunctiva and sclera are non-icteric and not injected. Cornea within normal limits. Periorbital areas with no swelling, redness, or edema. ENT: Nares patent. No nasal discharge, no septal abnormalities noted. Tympanic membranes are normal and external auditory canals are clear. Oropharynx with no redness, swelling, or masses, exudates, or evidence of obstruction, uvula midline. Mucous membranes moist. Neck: Trachea midline, no thyromegaly or masses palpated, and no cervical lymphadenopathy. Supple, full range of motion without nuchal rigidity, or vertebral point tenderness. No Meningismus. Chest/axilla: Normal chest wall appearance and motion. Nontender with no deformity. No lesions are appreciated. Cardiovascular: Regular rate and rhythm with a normal S1 and S2. No gallops, murmurs, or rubs. Normal PMI, no JVD. No pulse deficits. Respiratory: Lungs have equal breath sounds bilaterally, clear to auscultation and percussion. No rales, rhonchi or wheezes noted. No increased work of breathing, no retractions or nasal flaring. Abdomen/GI: Soft, non-tender, with normal bowel sounds. No distension or tympany. No guarding or rebound. No evidence of tenderness throughout. MS/ Extremity: Pulses equal, no cyanosis. Neurovascular intact. Full, normal range of motion. Neuro: Awake and alert, GCS 15, oriented to person, place, time, and situation. Cranial nerves II-XII grossly intact. Motor strength 5/5 in all extremities. Sensory grossly intact. Cerebellar exam normal. Normal gait. Vital Signs: 18:29 BP 119 / 63; Pulse 104; Resp 21; Temp 98.0; Pulse Ox 97% ; Weight 81.65 kg; Height 5 ll1 ft. 6 in. (167.64 cm); Pain 7/10; 20:00 BP 107 / 90; Pulse 94; Resp 16; Pulse Ox 98% on R/A; jb4 21:30 BP 121 / 98; Pulse 82; Resp 16; Pulse Ox 99% on R/A; jb4 22:15 BP 115 / 95; Pulse 82; Resp 16; Pulse Ox 97% on R/A; jb4 23:15 BP 110 / 84; Pulse 85; Resp 16; Pulse Ox 99% on R/A; jb4 18:29 Body Mass Index 29.05 (81.65 kg, 167.64 cm) ll1 MDM: 19:03 Patient medically screened. mn2 19:41 Data reviewed: vital signs, nurses notes. [facility] 23:33 Counseling: I had a detailed discussion with the patient and/or guardian regarding: the ma2 historical points, exam findings, and any diagnostic results supporting the discharge/admit diagnosis, the presence of at least one elevated blood pressure reading (>120/80) during this emergency department visit, the need for outpatient follow up. 11/23 19:20 Order name: Basic Metabolic Panel mn2 11/23 19:20 Order name: CBC with Diff mn2 11/23 19:20 Order name: LFT's; Complete Time: 20:29 mn2 11/23 19:20 Order name: Magnesium; Complete Time: 20:29 mn2 11/23 19:20 Order name: NT PRO-BNP; Complete Time: 20:29 ma2 11/23 19:20 Order name: PT-INR; Complete Time: 20:29 mn2 11/23 19:20 Order name: Troponin (emerg Dept Use Only); Complete Time: 20:29 ma2 11/23 19:20 Order name: XRAY Chest (1 view); Complete Time: 20:29 mn2 11/23 19:20 Order name: CK; Complete Time: 20:29 mn2 11/23 19:20 Order name: Lipase; Complete Time: 20:29 mn2 11/23 19:21 Order name: Basic Metabolic Panel; Complete Time: 20:29 EDMS 11/23 19:21 Order name: CBC with Automated Diff; Complete Time: 20:29 EDSC 11/23 22:14 Order name: Troponin I; Complete Time: 23:33 ma2 11/23 19:20 Order name: EKG; Complete Time: 19:21 ma2 11/23 19:20 Order name: Cardiac monitoring; Complete Time: 19:40 [facility] 11/23 19:20 Order name: EKG - Nurse/Tech; Complete Time: 20:45 mn2 11/23 19:20 Order name: IV Saline Lock; Complete Time: 19:40 mn2 11/23 19:20 Order name: Labs collected and sent; Complete Time: 19:40 mn2 11/23 19:20 Order name: O2 Per Protocol; Complete Time: 19:40 mn2 11/23 19:20 Order name: O2 Sat Monitoring; Complete Time: 19:40 mn2 11/23 19:20 Order name: Urine Dipstick-Ancillary (obtain specimen); Complete Time: 21:04 ma2 Administered Medications: 19:49 Drug: Ativan 1 mg Route: IVP; Site: right hand; jb4 21:17 Follow up: Response: No adverse reaction; Marked relief of symptoms jb4 19:50 Drug: NS 0.9% 1000 ml Route: IV; Rate: 1 bolus; Site: right hand; jb4 20:50 Follow up: Response: No adverse reaction; IV Status: Completed infusion; IV Intake: jb4 1000ml Disposition: 11/24/19 23:33 Discharged to Home. Impression: Palpitations. - Condition is Stable. - Discharge Instructions: Palpitations, Stimulant Use Disorder-Methamphetamines. - Medication Reconciliation Form, Thank You Letter, Antibiotic Education, Prescription Opioid Use form. - Follow up: Private Physician; When: Tomorrow; Reason: Continuance of care. Signatures: Dispatcher [employer] EDVijay Kim RN RN jb4 Slime Emerson MD MD ma2 Edson Montano RN RN ll1 Corrections: (The following items were deleted from the chart) 23:59 23:33 11/24/2019 23:33 Discharged to Home. Impression: Palpitations. Condition is jb4 Stable. Forms are Medication Reconciliation Form, Thank You Letter, Antibiotic Education, Prescription Opioid Use. Follow up: Private Physician; When: Tomorrow; Reason: Continuance of care. nissa
[2019-11-25 00:31] VITALS: TEMP 98
[2019-11-25 00:36] VITALS: BP 110/84; O2SAT 99
--- NOTE | 2019-11-25 18:32 | EKG ---
Test Date: 2019-11-24 Test Time: 20:32:04 Utilization Review Coordinator: MELISA MEASUREMENT RESULTS: Intervals: Rate: 84 LA: 166 QRSD: 74 QT: 380 QTc: 449 [place]: P: 43 LA: 166 QRS: 1 T: 24 INTERPRETIVE STATEMENTS: Normal sinus rhythm Normal ECG Compared to ECG 08/25/1998 08:21:00 Sinus tachycardia no longer present Electronically Signed On 11-25-19 18:31:15 CDT by Rehan Graf
== END 2019-11-24 23:59 | disposition home or self-care (01) ==
LOC: ER 18:06
DX: R00.2 Palpitations (principal); Z72.0 Tobacco use
CPT/HCPCS: 36415; 71045; 80048; 80076; 82550; 83690; 83735; 83880; 84484; 85025; 85610; 93005; J7030

== ENCOUNTER 2020-06-03 15:54 | Emergency (ER) | payer SELFPAY ==
--- OUTSIDE RECORDS SUMMARY | 2020-06-03 15:56 | XMS REPORT | Continuity of Care Document ---
:1970 Author Organization [facility] t Address [address] [place] [address] Care Team Providers Name Role Phone BALJINDER LENTZ Attending Clinician Unavailable JANIE LENTZ Admitting Clinician Unavailable Problems Condition Condition Condition Status Onset Resolution Last Treating Co mments Source Name Details Category Date Date Treatment Clinician Date Pharyngiti Pharyngiti Disease Active [facility] [address] [place] [address] Uvular Uvular Disease Active [facility] [address] [place] [address] Allergies, Adverse Reactions, Alerts This patient has no known allergies or adverse reactions. Social History Social Habit Start Date Stop Date Quantity Comments Source Sex Assigned At [facility] Tobacco use and 2017-12-28 2017-12-28 Never used [facility] - exposure 00:00:00 00:00:00 [facility] Smoking Status Start Date Stop Date Source Never smoker [facility] Medications This patient has no known medications. Procedures This patient has no known procedures. Results Test Description Test Time Test Comments Results Result Comments Source RAPID STREP A SCREEN 2017-12-29 09:58:00 Test Item Value Reference Range Interpretation Comme nts STREP A ANTIGEN ([facility]to[facility]) (test code = 556) Negative Negative HIV-1 ANTIGEN WITH HIV-1/2 [id number] 08:48:00 Test Item Value Reference Range Interpretation Comments HIV-1 ANTIGEN WITH HIV 1\T\2 Nonreactive Nonreactive ANTIBODY (2) (BEAKER) (test code = 2586) BASIC METABOLIC [id number] 04:37:00 Test Item Value Reference Range Interpretation Comments SODIUM (BEAKER) 138 meq/L 136-145 (test code = 381) POTASSIUM (BEAKER) 3.9 meq/L 3.5-5.1 (test code = 379) CHLORIDE (BEAKER) 106 meq/L 98-107 (test code = 382) CO2 (BEAKER) (test 22 meq/L 22-29 code = 355) BLOOD UREA NITROGEN 23 mg/dL 7-21 H (BEAKER) (test code = 354) CREATININE (BEAKER) 0.89 mg/dL 0.57-1.25 (test code = 358) GLUCOSE RANDOM 163 mg/dL 70-105 H (BEAKER) (test code = 652) CALCIUM (BEAKER) 9.6 mg/dL 8.4-10.2 (test code = 697) EGFR (BEAKER) (test mL/min/1.73 INSUFFIC IENT CLINICAL code = 1092) sq m DATA TO CALCULA TE ESTIMATED GFR. CBC W/PLT COUNT & AUTO [id number] 04:21:00 Test Item Value Reference Range Interpretation Comments WHITE BLOOD CELL COUNT (BEAKER) 11.3 K/ L 3.5-10.5 H (test code = 775) RED BLOOD CELL COUNT (BEAKER) 4.27 M/ L 4.63-6.08 L (test code = 761) HEMOGLOBIN (BEAKER) (test code = 14.4 GM/DL 13.7-17.5 410) HEMATOCRIT (BEAKER) (test code = 40.9 % 40.1-51.0 411) MEAN CORPUSCULAR VOLUME (BEAKER) 95.8 fL 79.0-92.2 H (test code = 753) MEAN CORPUSCULAR HEMOGLOBIN 33.7 pg 25.7-32.2 H (BEAKER) (test code = 751) MEAN CORPUSCULAR HEMOGLOBIN CONC 35.2 GM/DL 32.3-36.5 (BEAKER) (test code = 752) RED CELL DISTRIBUTION WIDTH 12.2 % 11.6-14.4 (BEAKER) (test code = 412) PLATELET COUNT (BEAKER) (test 269 K/CU MM 150-450 code = 756) MEAN PLATELET VOLUME (BEAKER) 9.4 fL 9.4-12.4 (test code = 754) NUCLEATED RED BLOOD CELLS 0 /100 WBC 0-0 (BEAKER) (test code = 413) NEUTROPHILS RELATIVE PERCENT 91 % (BEAKER) (test code = 429) LYMPHOCYTES RELATIVE PERCENT 5 % (BEAKER) (test code = 430) MONOCYTES RELATIVE PERCENT 3 % (BEAKER) (test code = 431) EOSINOPHILS RELATIVE PERCENT 0 % (BEAKER) (test code = 432) BASOPHILS RELATIVE PERCENT 0 % (BEAKER) (test code = 437) NEUTROPHILS ABSOLUTE COUNT 10.28 K/ L 1.78-5.38 H (BEAKER) (test code = 670) LYMPHOCYTES ABSOLUTE COUNT 0.61 K/ L 1.32-3.57 L (BEAKER) (test code = 414) MONOCYTES ABSOLUTE COUNT (BEAKER) 0.32 K/ L 0.30-0.82 (test code = 415) EOSINOPHILS ABSOLUTE COUNT 0.00 K/ L 0.04-0.54 L (BEAKER) (test code = 416) BASOPHILS ABSOLUTE COUNT (BEAKER) 0.01 K/ L 0.01-0.08 (test code = 417) IMMATURE GRANULOCYTES-RELATIVE 0 % 0-1 PERCENT (BEAKER) (test code = 2801) RAD, CHEST, 1 VIEW, NON [id number] 15:38:00Post-intubationReason for exam:- >dyspneaShould this be performed at the bedside?->YesFINAL REPORT Chest, one view HISTORY: Dyspnea COMPARISON: None. DISCUSSION: Ani ngs are clear without focal consolidation. Cardiomediastinal silhouette is unremarkable. No acute osseous abnormality. No pleural effusion or pneumothorax. Visualized portions of the upper abdomen are unremarkable. IMPRESSION: No acute cardiopulmonary abnormality. Signed: Shiraz Culp MDReport Verified Date/Time: 12/28/2017 15:38:07 Reading Location: [facility] B1 C013Y CT Body Reading Room APTT 2017-12-28 15:13:00 Test Item Value Reference Range Interpretation Comments PARTIAL THROMBOPLASTIN TIME 32.6 seconds 22.5-36.0 (BEAKER) (test code = 760) PROTHROMBIN TIME/[id number] 15:12:00 Test Item Value Reference Range Interpretation Comments PROTIME (BEAKER) (test code = 14.3 seconds 11.7-14.7 759) INR (BEAKER) (test code = 370) 1.1 <=5.9 RECOMMENDED COUMADIN/WARFARIN INR THERAPY RANGESSTANDARD DOSE: 2.0 - 3.0 Includes: PROPHYLAXIS forvenous thrombosis, systemic embolization; TREATMENT for venous thrombosis and/or pulmonary embolus.HIGH RISK: Target INR is 2.5-3.5 for patients with mechanical heart valves.
--- OUTSIDE RECORDS SUMMARY | 2020-06-03 15:56 | XMS REPORT | Clinical Summary ---
:1970 Author Organization [facility] Address [address] [place] [address] Care Team Providers Name Role Phone Unavailable Primary Care Provider Unavailable Allergies No Known Allergies Medications No known medications Active Problems Problem Noted Date Pharyngitis 12/29/2017 Uvular edema 12/28/2017 Social History Tobacco Use Types Packs/Day Years Used Date Never Smoker Smokeless Tobacco: Never Used Sex Assigned at Date Recorded Not on file Last Filed Vital Signs Not on file Plan of Treatment Not on file Results Not on fileafter 06/03/2019 Advance Directives For more information, please contact: [phone] Code Status Date Activated Date Inactivated Comments Full Code 12/28/2017 2:26 PM 12/29/2017 3:26 PM This code status was determined by: Patient
--- NOTE | 2020-06-03 16:35 | EDPHYS ---
Physician Documentation [facility] Name: Jacques Oropeza Age: 50 yrs Sex: Male : 1970 Arrival Date: 06/03/2020 Time: 15:55 Bed 16 Private MD: ED Physician Dipak Julian HPI: 06/03 16:22 This 50 yrs old Male presents to ER via Ambulatory with complaints of Hand jmm Pain. 16:22 The patient or guardian reports pain. Onset: The symptoms/episode began/occurred jmm yesterday. Modifying factors: The symptoms are alleviated by nothing, the symptoms are aggravated by nothing. Associated signs and symptoms: Pertinent negatives: fever, numbness distally, tingling distally. This is a 50 year old male with no chronic medical conditions that presents to the ED with complaints of redness and swelling to his hands beginning yesterday. Patient worsened the symptoms after washing his car. Patient denied fever. . Historical: - Allergies: 16:03 No Known Allergies; jd3 - Home Meds: 16:03 None [Active]; jd3 - PMHx: 16:03 None; jd3 - PSHx: 16:03 foot surgery; jd3 - Immunization history:: Adult Immunizations unknown, Last tetanus immunization: unknown. - Social history:: Smoking status: Patient denies any tobacco usage or history of. Patient uses street drugs, marijuana. ROS: 16:22 Constitutional: Negative for fever, chills, and weight loss, Cardiovascular: Negative jmm for chest pain, palpitations, and edema, Respiratory: Negative for shortness of breath, cough, wheezing, and pleuritic chest pain. 16:22 Skin: Positive for erythema. 16:22 All other systems are negative. Exam: 16:22 Head/Face: atraumatic. Eyes: EOMI, no conjunctival erythema appreciated ENT: Moist jmm Mucus Membranes Neck: Trachea midline, Supple Chest/axilla: Normal chest wall appearance and motion. Cardiovascular: Regular rate and rhythm. No edema appreciated Respiratory: Normal respirations, no respiratory distress appreciated Abdomen/GI: Non distended, soft Back: Normal ROM 16:22 Constitutional: The patient appears alert, awake, anxious, restless. 16:22 Musculoskeletal/extremity: FROM noted to the both hands, < 2 sec dist cap refill, NVI. 16:22 Skin: erythema noted to the hands bilaterally, no purulent drainage appreciated, . 16:22 Neuro: Orientation: is normal, Mentation: is normal, Memory: is normal. 16:22 Psych: Behavior/mood is aggressive. Vital Signs: 16:03 BP 104 / 86; Pulse 110; Resp 17 S; Temp 98.3(O); Pulse Ox 97% on R/A; Weight 81.65 kg jd3 (R); Height 5 ft. 6 in. (167.64 cm) (R); Pain 10/10; 16:03 Body Mass Index 29.05 (81.65 kg, 167.64 cm) jd3 MDM: 16:22 [facility] 16:34 Data reviewed: vital signs, nurses notes. Counseling: I had a detailed discussion with francesca the patient and/or guardian regarding: the historical points, exam findings, and any diagnostic results supporting the discharge/admit diagnosis, the need for outpatient follow up, to return to the emergency department if symptoms worsen or persist or if there are any questions or concerns that arise at home. 20:09 ED course: During initial evaluation, the patient became more upset as I was confirming francesca the progression of his symptoms. I discussed with the patient that I would prescribe medication to help alleviate his symptoms. Upon discharge, patient became increasingly upset and left the ER without obtaining prescriptions. Administered Medications: No medications were administered Disposition: 06/03/20 16:34 Discharged to Home. Impression: Dermatitis of Hands. - Condition is Stable. - Discharge Instructions: Hand Dermatitis. - Prescriptions for Medrol (Charlie) 4 mg Oral Tablets, Dose Pack - take 1 tablet by ORAL route as directed - follow package instructions; 1 packet. Bactrim DS 800- 160 mg Oral Tablet - take 1 tablet by ORAL route every 12 hours for 10 days; 20 tablet. - Medication Reconciliation Form, Thank You Letter, Antibiotic Education, Prescription Opioid Use form. - Follow up: Private Physician; When: 2 - 3 days; Reason: Recheck today's complaints, Continuance of care, Re-evaluation by your physician. Addendum: 06/05/2020 14:38 Co-signature as Attending Physician, Dipak Julian MD I agree with the assessment and k dr plan of care. Signatures: Dipak Julian MD MD kdr Mickail, Joel, PA PA jmm Davies, Ernesto, RN RN jd3 Ana Maria Bhatti RN RN ca1 Corrections: (The following items were deleted from the chart) 06/03 16:54 16:34 06/03/2020 16:34 Discharged to Home. Impression: Dermatitis of Hands. Condition ca1 is Stable. Forms are Medication Reconciliation Form, Thank You Letter, Antibiotic Education, Prescription Opioid Use. Follow up: Private Physician; When: 2 - 3 days; Reason: Recheck today's complaints, Continuance of care, Re-evaluation by your physician. francesca
--- NOTE | 2020-06-03 16:35 | ER ---
Nurse's Notes [facility] Name: Jacques Oropeza Age: 50 yrs Sex: Male : 1970 Arrival Date: 06/03/2020 Time: 15:55 Bed 16 Private MD: Diagnosis: Dermatitis of Hands Presentation: 06/03 16:02 Chief complaint: Patient states: "I don't know what I touched or what, but it started jd3 yesterday. my hands are swelling and are painful.". Coronavirus screen: At this time, the client does not indicate any symptoms associated with coronavirus-19. Ebola Screen: Patient negative for fever greater than or equal to 101.5 degrees Fahrenheit, and additional compatible Ebola Virus Disease symptoms. Initial Sepsis Screen: Does the patient meet any 2 criteria? No. Patient's initial sepsis screen is negative. Does the patient have a suspected source of infection? No. Patient's initial sepsis screen is negative. Risk Assessment: Do you want to hurt yourself or someone else? Patient reports no desire to harm self or others. Onset of symptoms was June 02, 2020. 16:02 Method Of Arrival: Ambulatory jd3 16:02 Acuity: BRODY 3 jd3 Historical: - Allergies: 16:03 No Known Allergies; jd3 - Home Meds: 16:03 None [Active]; jd3 - PMHx: 16:03 None; jd3 - PSHx: 16:03 foot surgery; jd3 - Immunization history:: Adult Immunizations unknown, Last tetanus immunization: unknown. - Social history:: Smoking status: Patient denies any tobacco usage or history of. Patient uses street drugs, marijuana. Screenin:20 Abuse screen: Denies threats or abuse. Denies injuries from another. Nutritional ca1 screening: No deficits noted. Tuberculosis screening: No symptoms or risk factors identified. Fall Risk None identified. Assessment: 16:20 General: Appears in no apparent distress. comfortable, Behavior is. Pain: Complains of ca1 pain in right hand and left hand. Neuro: Level of Consciousness is awake, alert, obeys commands, Oriented to person, place, time, situation. Derm: Skin is intact, is healthy with good turgor, Skin is pink, warm \\T\\ dry. Musculoskeletal: Circulation, motion, and sensation intact. Capillary refill < 3 seconds, Swelling present in right hand and left hand. 16:49 Reassessment: While giving discharge instructions, pt states, " Aren't you doing ca1 anything to my hands right now? I don't want just prescriptions and then you are just going to bill me with this. Tell him (referring to provider SACHI Dominguez) I need to talk to him". Notified provider. Saw pt walk out of the room and of the ER. Vital Signs: 16:03 BP 104 / 86; Pulse 110; Resp 17 S; Temp 98.3(O); Pulse Ox 97% on R/A; Weight 81.65 kg jd3 (R); Height 5 ft. 6 in. (167.64 cm) (R); Pain 10/10; 16:03 Body Mass Index 29.05 (81.65 kg, 167.64 cm) jd3 ED Course: 15:55 Patient arrived in ED. ag5 16:03 Triage completed. jd3 16:05 Arm band placed on. j 16:19 Alberto Pham PA is PHCP. [facility] 16:19 Dipak Julian MD is Attending Physician. [facility] 16:20 Patient has correct armband on for positive identification. ca1 16:26 Ana Maria Bhatti RN is Primary Nurse. ca1 16:53 No provider procedures requiring assistance completed. Patient did not have IV access ca1 during this emergency room visit. Administered Medications: No medications were administered Outcome: 16:34 Discharge ordered by MD. [facility] 16:53 Discharged to home ambulatory. ca1 16:53 Condition: stable 16:53 Discharge instructions given to patient, Instructed on discharge instructions, follow up and referral plans. medication usage, Demonstrated understanding of instructions, follow-up care, medications, Prescriptions given X 2, Pt left before signing discharge papers, instructions given but left discharge papers 16:54 Patient left the ED. ca1 Signatures: Alberto Pham PA PA jmm Davies, Jonathon, RN RN jAna Maria Horton RN RN ca1 Socorro Aguilar ag5 Corrections: (The following items were deleted from the chart) 16:07 16:03 Pulse 110bpm; Resp 17bpm; Spontaneous; Pulse Ox 97% RA; Temp 98.3F Oral; 81.65 kg jd3 Reported; Height 5 ft. 6 in. Reported; BMI: 29.0; Pain 05/14; jd3 16:54 16:53 Discharge instructions given to patient, Instructed on discharge instructions, ca1 follow up and referral plans. medication usage, Demonstrated understanding of instructions, follow-up care, medications, Prescriptions given X 2, Pt left before signing discharge papers, instructions given but left discharge papers in room ca1
[2020-06-03 17:10] VITALS: BP 104/86; TEMP 98.3; O2SAT 97
== END 2020-06-03 16:54 | disposition home or self-care (01) ==
LOC: ER 15:54
DX: L30.9 Dermatitis, unspecified (principal); M79.641 Pain in right hand
CPT/HCPCS: 99282

== ENCOUNTER 2023-06-11 11:46 | Emergency (ER) | payer SELFPAY ==
--- OUTSIDE RECORDS SUMMARY | 2023-06-11 11:50 | XMS REPORT | Continuity of Care Document ---
:1970 Author Organization [facility] t Address [address] [place] [address] [place] [id number] Care Team Providers Name Role Phone Pcp, Patient Does Not Have A Primary Care Physician [phone] Mona Attending Clinician Unavailable RENEE BELL Attending Clinician Unavailable Renee Storm Attending Clinician BALJINDER LENTZ Attending Clinician Unavailable Mona Admitting Clinician Unavailable BALJINDER LENTZ Admitting Clinician Unavailable Payers Payer Name Policy Type Policy Number Effective Date Expiration Date [place] MIKE [id number] [facility] [employer] [id number] 2015 REHABILITATION 00:00:00 Problems Condition Condition Condition Status Onset Resolution Last Treating Co mments Source Name Details Category Date Date Treatment Clinician Date Pharyngiti Pharyngiti Disease Active [facility] Uvular Uvular Disease Active [facility] Calcaneus Calcaneus Disease Active Uni vers fracture, fracture, 6-11 ity of right, right, 00:00: [place] closed, closed, 00 Medical initial initial Branch encounter encounter Allergies, Adverse Reactions, Alerts Allergy Allergy Status Severity Reaction(s) Onset Inactive Treating Comm ents Source Name Type Date Date Clinician NO KNOWN Drug Active [facility] ALLERGIE Class [facility] [place] [facility] Social History Social Habit Start Date Stop Date Quantity Comments Source Exposure to 2022-11-09 2022-11-19 Not sure [facility] SARS-CoV-2 00:00:00 17:05:00 [facility] (event) [place] Alcohol intake 2022-11-19 2022-11-19 University 00:00:00 00:00:00 [facility] Tobacco use and 2017-12-28 2017-12-28 Smokeless tobacco [facility] exposure [facility] Sex Assigned At [address] [address] [facility] Smoking Status Start Date Stop Date Source Never smoked tobacco [facility] Medications Ordered Filled Start Stop Current Ordering Indication Dosage Frequency Signature Comments Components Source Medication Medication Date Date Medication? Clinician (SIG) Name Name ibuprofen Yes [id number] 600mg Take 1 U nivers 600 mg 4-17 tablet by ity of tablet 00:00: mouth [place] 00 every 6 Medical (six) Branch hours as needed for Pain (scale 4-6). acetaminoph Yes 1{tbl} Take 1-2 Univers en-codeine 7-31 Tabs by ity of (TYLENOL 00:00: mouth [place] #3) 300-30 00 every 4 Medica l mg tablet (four) Branch hours as needed for Pain (scale 4-6). traMADOL Yes 50mg Take 1 Tab Uni vers (ULTRAM) 50 7-31 by mouth ity of mg tablet 00:00: every 6 [place] 00 (six) Medical hours as Branch needed for Pain (scale 4-6). gabapentin Yes 400mg Take 1 Cap Univers (NEURONTIN) 7-31 by mouth 3 it y of 400 mg 00:00: (three) [place] capsule 00 times Medical daily. Branch sulfamethox Yes 1{tbl} Take 1 Tab Univers azole-trime 7-31 by mouth 2 it y of thoprim 00:00: (two) [place] (BACTRIM 00 times Medical SS) 400-80 daily. Branch mg tablet Vital Signs Vital Name Observation Time Observation Value Comments Source Systolic blood 2022-11-20 04:00:00 123 mm[Hg] Univer sity of pressure [facility] Diastolic blood 2022-11-20 04:00:00 100 mm[Hg] Unive rsity of pressure [facility] Heart rate 2022-11-20 04:00:00 111 /min [facility] Body temperature 2022-11-20 04:00:00 36.72 [facility] Respiratory rate 2022-11-20 04:00:00 18 /min [facility] Oxygen saturation in 2022-11-20 04:00:00 98 /min [facility] Arterial blood by [facility] Pulse oximetry [place] Body height 2022-11-19 22:05:00 167.6 cm [facility] Body weight 2022-11-19 22:05:00 86.183 kg [facility] BMI 2022-11-19 22:05:00 30.67 kg/m2 [facility] Procedures Procedure Date / Time Performed Performing Clinician Sour e URINALYSIS 2022-11-20 00:11:00 Mandeep Ortiz [place] [facility] NOTICE OF PRIVACY 2022-11-19 21:56:58 Doctor Unassigned, No Univ [facility] PRACTICES Name [facility] Encounters Start End Encounter Admission Attending Care Care Encounter Source Date/Time Date/Time Type Type Clinicians Facility Department ID 2023-05-29 2023-05-29 Outpatient Prakash_S_H VFP VFP [id number] Village 00:00:00 00:00:00 RADHA [id number] Family Practic e 2022-11-21 2022-11-21 Outpatient SFA SFA [id number] [place] 13:59:57 13:59:57 [id number] F Ian 2022-11-19 2022-11-19 [facility] [id number] Univers 17:08:00 23:51:00 RENEE pierson [facility] 2022-11-19 2022-11-19 [facility] [id number] [facility] 17:08:00 23:51:00 Renee HERNANDEZ [id number] kenna [facility] [id number] [facility] [id number] [facility] jessika 084 Branch 2022-10-02 2022-10-02 Outpatient [facility] [id number] [place] 09:18:26 09:18:26 [id number] F Ian 2022-09-17 2022-09-17 Outpatient [facility] [id number] [place] 14:52:11 14:52:11 [id number] F Ian 2022-07-02 2022-07-02 Outpatient [facility] [id number] [place] 10:57:24 10:57:24 [id number] F Ian Results Test Description Test Time Test Comments Results Result Comments Source RAPID STREP A SCREEN 2017-12-29 09:58:00 Test Item Value Reference Range Interpretation Comme nts STREP A ANTIGEN (BEAKER) (test code = 556) Negative Negative HIV-1 ANTIGEN WITH HIV-1/2 [id number] 08:48:00 Test Item Value Reference Range Interpretation Comments HIV-1 ANTIGEN WITH HIV 1\T\2 Nonreactive Nonreactive ANTIBODY (2) (BEAKER) (test code = 2586) BASIC METABOLIC [id number] 04:37:00 Test Item Value Reference Range Interpretation [...] ESTIMATED GFR. CBC W/PLT COUNT & AUTO [id number] 04:21:00 Test Item Value Reference Range Interpretation [...] = 2801) RAD, CHEST, 1 VIEW, NON [id number] 15:38:00Post-intubationReason for exam:- >dyspneaShould this be performed at the bedside?->YesFINAL REPORT Chest, one view HISTORY: Dyspnea COMPARISON: None. DISCUSSION: Lung s are clear without focal consolidation. Cardiomediastinal silhouette is unremarkable. No acute osseous abnormality. No pleural effusion or pneumothorax. Visualized portions of the upper abdomen are unremarkable. IMPRESSION: No acute cardiopulmonary abnormality. Signed: Shiraz Culp MDReport Verified Date/Time: 12/28/2017 15:38:07 Reading Location: [address] Body Reading Room APTT 2017-12-28 15:13:00 Test Item Value Reference Range Interpretation Comments PARTIAL THROMBOPLASTIN TIME 32.6 seconds 22.5-36.0 (BEAKER) (test code = 760) PROTHROMBIN TIME/[id number] 15:12:00 Test Item Value Reference Range Interpretation Comments PROTIME (BEAKER) (test code = 14.3 seconds 11.7-14.7 759) INR (BEAKER) (test code = 370) 1.1 <=5.9 RECOMMENDED COUMADIN/WARFARIN INR THERAPY RANGESSTANDARD DOSE: 2.0 - 3.0 Includes: PROPHYLAXIS for venous thrombosis, systemic embolization; TREATMENT for venous thrombosis and/or pulmonary embolus.HIGH RISK: Target INR is 2.5-3.5 for patients with mechanical heart valves.
[2023-06-11] MEDS ORDERED: DOXYCYCLINE 100 MG CAP PO ONE (12:40)
[2023-06-11] MEDS ORDERED: KETOROLAC 30 MG/ML INJ ONE (12:40)
--- NOTE | 2023-06-11 13:14 | RAD REPORT ---
EXAM DESCRIPTION: RAD - Chest Single View - 06/11/2023 1:02 pm CLINICAL HISTORY: TRAUMA Chest pain. COMPARISON: Chest Single View dated 11/24/2019; Ribs Left dated 06/11/2023 FINDINGS: Portable technique limits examination quality. The lungs are grossly clear. The heart is normal in size. Lateral left eighth rib shows a nondisplace d fracture.
--- NOTE | 2023-06-11 13:15 | RAD REPORT ---
EXAM DESCRIPTION: RAD - Ribs Left - 06/11/2023 1:02 pm CLINICAL HISTORY: PAIN COMPARISON: Chest Single View dated 06/11/2023 FINDINGS: The lateral left seventh and eighth rib fractures are present. These fractures are minimal ly displaced. No measurable pneumothorax.
--- NOTE | 2023-06-11 13:41 | ER ---
Nurse's Notes [facility] Name: Jacques Oropeza Age: 53 yrs Sex: Male : 1970 Arrival Date: 06/11/2023 Time: 11:46 Bed 5 Private MD: Diagnosis: Cellulitis of left upper limb;Fracture of one rib Presentation: 06/11 12:00 Chief complaint: Patient states: Fell 2 days ago and hit the counter - "I think my left ld1 rib is broken." Pain to left arm; "I went to [facility] and now my left arm hurts where they put the needle.". Coronavirus screen: At this time, the client does not indicate any symptoms associated with coronavirus-19. Ebola Screen: No symptoms or risks identified at this time. Initial Sepsis Screen: Does the patient meet any 2 criteria? No. Patient's initial sepsis screen is negative. Does the patient have a suspected source of infection? No. Patient's initial sepsis screen is negative. Risk Assessment: Do you want to hurt yourself or someone else? Patient reports no desire to harm self or others. Onset of symptoms was June 11, 2023. 12:00 Method Of Arrival: Wheelchair ld1 12:00 Acuity: BRODY 3 ld1 Triage Assessment: 12:00 General: Appears in no apparent distress. uncomfortable, Behavior is cooperative, ld1 anxious. Pain: Complains of pain in left lateral anterior chest and left breast Pain does not radiate. Pain currently is 10 out of 10 on a pain scale. Quality of pain is described as throbbing, Pain began 2-3 days ago. Is continuous. EENT: No signs and/or symptoms were reported regarding the EENT system. Neuro: Level of Consciousness is awake, alert, obeys commands, Oriented to person, place, time, situation. Cardiovascular: Capillary refill < 3 seconds Patient's skin is warm and dry. Respiratory: Airway is patent Respiratory effort is even, unlabored. GI: Abdomen is round non-distended. : No signs and/or symptoms were reported regarding the genitourinary system. Derm: Wound noted left arm. Musculoskeletal: No signs and/or symptoms reported regarding the musculoskeletal system. Historical: - Allergies: 12:00 No Known Allergies; ld1 - Home Meds: 12:00 None [Active]; ld1 - PMHx: 12:00 PRE DIABETIC; ld1 - PSHx: 12:00 heel; ld1 - Immunization history:: Adult Immunizations up to date. - Social history:: Smoking status: Patient denies any tobacco usage or history of. Patient uses street drugs, marijuana, Patient/guardian denies using alcohol. Screenin:30 [facility] ED Fall Risk Assessment (Adult) History of falling in the last 3 months, kc6 including since admission No falls in past 3 months (0 pts) Confusion or Disorientation No (0 pts) Intoxicated or Sedated No (0 pts) Impaired Gait No (0 pts) Mobility Assist Device Used No (0 pt) Altered Elimination No (0 pt) Score/Fall Risk Level 0 - 2 = Low Risk. Abuse screen: Denies threats or abuse. Denies injuries from another. Nutritional screening: No deficits noted. Tuberculosis screening: No symptoms or risk factors identified. Assessment: 12:00 Reassessment: please see triage assessment. kc6 12:05 General: Appears in no apparent distress. comfortable, Behavior is calm, cooperative. rs5 Pain: Complains of pain in left arm and left side of chest Pain does not radiate. Pain currently is 9 out of 10 on a pain scale. Quality of pain is described as aching, Pain began 2-3 days ago. Is continuous. Neuro: Level of Consciousness is awake, alert, obeys commands, Oriented to person, place, time, situation. Cardiovascular: Denies chest pain, Heart tones S1 S2 present Rhythm is regular. Respiratory: Airway is patent Respiratory effort is even, unlabored, Respiratory pattern is regular, symmetrical, Breath sounds are clear bilaterally. GI: Abdomen is round non-distended, Bowel sounds present X 4 quads. Abd is soft and non tender X 4 quads. : No signs and/or symptoms were reported regarding the genitourinary system. EENT: No signs and/or symptoms were reported regarding the EENT system. Derm: Skin is intact, Skin is dry, Skin is normal, Skin temperature is warm. Musculoskeletal: Range of motion: limited in left arm. 13:01 Pain: Complains of pain in left arm and left side of chest Pain does not radiate. Pain rs5 currently is 3 out of 10 on a pain scale. Quality of pain is described as aching, Is continuous. 13:01 Reassessment: Patient states feeling better. rs5 13:45 Reassessment: Patient appears in no apparent distress at this time. Patient and/or hb family updated on plan of care and expected duration. Pain level reassessed. Patient is alert, oriented x 3, equal unlabored respirations, skin warm/dry/pink. Vital Signs: 12:00 BP 116 / 89; Pulse 103; Resp 18; Temp 97.5(TE); Pulse Ox 96% on R/A; Weight 77.11 kg; ld1 Height 5 ft. 5 in. ; Pain 10/10; 12:10 BP 120 / 81; Pulse 89; Resp 17; Temp 97.6; Pulse Ox 99% on R/A; rs5 13:05 BP 117 / 84; Pulse 80; Resp 18; Pulse Ox 99% on R/A; rs5 12:00 Body Mass Index 28.29 (77.11 kg, 165.1 cm) ld1 12:00 Pain Scale: Adult ld1 ED Course: 11:51 Patient arrived in ED. mg5 11:52 David Rene MD is Attending Physician. ec2 12:00 Arm band placed on right wrist. ld1 12:01 Triage completed. ld1 12:18 Harlan Rogel, LES is Primary Nurse. rs5 12:30 Patient has correct armband on for positive identification. Bed in low position. Call kc6 light in reach. Side rails up X 1. Client placed on continuous cardiac and pulse oximetry monitoring. NIBP monitoring applied. 12:30 Patient maintains SpO2 saturation greater than 95% on room air. kc6 13:03 CXR XRAY In Process Unspecified. EDMS 13:03 Ribs Left XRAY In Process Unspecified. EDMS 13:45 Provided Education on: . hb 13:45 No provider procedures requiring assistance completed. Patient did not have IV access hb during this emergency room visit. Administered Medications: 12:34 Drug: Ketorolac IM 60 mg IM once Route: IM; Site: right deltoid; kc6 13:01 Follow up: Response: No adverse reaction; Pain is decreased rs5 12:34 Drug: Doxycycline PO 100 mg PO once Route: PO; kc6 13:10 Follow up: Response: No adverse reaction rs5 Medication: 13:45 VIS not applicable for this client. hb Outcome: 13:40 Discharge ordered by . ec2 13:45 Discharged to home ambulatory, hb 13:45 Condition: stable 13:45 Discharge instructions given to patient, Instructed on discharge instructions, follow up and referral plans. medication usage, Demonstrated understanding of instructions, follow-up care, medications, Prescriptions given X 2, 13:46 Patient left the ED. hb Signatures: Dispatcher [employer] Evita Malloy RN RN Lauren Cary RN RN ld1 Lady Martinez RN RN 6 Harlan Rogel RN RN rs5 Michelle Torres 5 David Rene MD MD ec2 Corrections: (The following items were deleted from the chart) 12:03 12:00 Chief complaint: Patient states: Fell 2 days ago and hit the counter - "I think ld1 my left rib is broken." ld1 19:37 12:05 Pain: Complains of pain in left arm Pain does not radiate. Pain currently is 6 rs5 out of 10 on a pain scale. Quality of pain is described as aching, Pain began 2-3 days ago. Is continuous, rs5
--- NOTE | 2023-06-11 13:41 | EDPHYS ---
Physician Documentation [facility] Name: Jacques Oropeza Age: 53 yrs Sex: Male : 1970 Arrival Date: 06/11/2023 Time: 11:46 Bed 5 Private MD: ED Physician David Rene HPI: 06/11 12:04 This 53 yrs old Male presents to ER via Wheelchair with complaints of Arm ec2 Pain, Side Pain. 12:04 Patient arrives today for evaluation of 2 separate complaints. Patient states that he ec2 is concerned about his left rib pain that occurred after he had fell and struck his chest. Patient reports no loss of consciousness, no head or neck pain. States he is having point tenderness in his area that he was struck at. Patient also complains of left forearm pain and swelling. States that he was at an IV infusion clinic and had an IV located at the site and is having some redness and swelling now. Patient reports no systemic symptoms, no fevers, no nausea, no vomiting or other concerns. Denies any medication allergies.. Historical: - Allergies: 12:00 No Known Allergies; ld1 - Home Meds: 12:00 None [Active]; ld1 - PMHx: 12:00 PRE DIABETIC; ld1 - PSHx: 12:00 heel; ld1 - Immunization history:: Adult Immunizations up to date. - Social history:: Smoking status: Patient denies any tobacco usage or history of. Patient uses street drugs, marijuana, Patient/guardian denies using alcohol. ROS: 12:04 Constitutional: as per hpi ec2 Exam: 12:04 Constitutional: GEN: NAD Head: atraumatic Eyes: EOMI Ears: External ears are ec2 normal. CV: Tachycardia LUNGS: no respiratory distress ABD: non-distended SKIN: Induration and erythema noted over the left forearm without fluctuance or crepitus appreciated MSK: Point TTP to the left lateral ribs, no deformities or crepitus appreciated. NEURO: moves all extremities equally Vital Signs: 12:00 BP 116 / 89; Pulse 103; Resp 18; Temp 97.5(TE); Pulse Ox 96% on R/A; Weight 77.11 kg; ld1 Height 5 ft. 5 in. ; Pain 10/10; 12:10 BP 120 / 81; Pulse 89; Resp 17; Temp 97.6; Pulse Ox 99% on R/A; rs5 13:05 BP 117 / 84; Pulse 80; Resp 18; Pulse Ox 99% on R/A; rs5 12:00 Body Mass Index 28.29 (77.11 kg, 165.1 cm) ld1 12:00 Pain Scale: Adult ld1 MDM: 11:52 Patient medically screened. ec2 12:04 Data reviewed: vital signs. ED course: Patient arrives today for evaluation of left ec2 chest wall pain as well as left forearm swelling. Examination remarkable for skin and MSK findings as noted above. Will obtain a chest x-ray with rib series and give the patient doxycycline for soft tissue skin infection. Patient without systemic signs and symptoms to warrant obtaining lab work at this time. Patient is mildly tachycardic however is uncomfortable with the point tenderness on the left chest. Currently considering bone contusion, bony fracture, cellulitis.. 13:23 ED course: Radiographs show left lateral rib fracture, nondisplaced. Will discharge ec2 home, patient without any respiratory distress, no pneumothorax identified. Will prescribe pain medications.. 06/11 12:04 Order name: CXR XRAY; Complete Time: 13:23 ec2 06/11 12:04 Order name: Ribs Left XRAY; Complete Time: 13:23 ec2 Administered Medications: 12:34 Drug: Ketorolac IM 60 mg IM once Route: IM; Site: right deltoid; kc6 13:01 Follow up: Response: No adverse reaction; Pain is decreased rs5 12:34 Drug: Doxycycline PO 100 mg PO once Route: PO; kc6 13:10 Follow up: Response: No adverse reaction rs5 Disposition Summary: 06/11/23 13:40 Discharge Ordered Notes: Location: Home ec2 Condition: Stable ec2 Diagnosis - Cellulitis of left upper limb ec2 - Fracture of one rib ec2 Discharge Instructions: - Discharge Summary Sheet ec2 - Cellulitis, Adult ec2 - Rib Fracture ec2 Forms: - Medication Reconciliation Form ec2 - Thank You Letter ec2 - Antibiotic Education ec2 - Prescription Opioid Use ec2 - Patient Portal Instructions ec2 - Leadership Thank You Letter ec2 Prescriptions: - acetaminophen-codeine 300-15 mg Oral tablet - take 2 tablet ORAL route every 6 hours as needed for pain; 20 tablet; Refills: ec2 0, Product Selection Permitted - Doxycycline Hyclate 100 mg Oral Tablet - take 1 tablet ORAL route every 12 hours; 20 tablet; Refills: 0, Product ec2 Selection Permitted Signatures: Dispatcher [employer] Lauren Lou RN RN ld1 Lady Martinez RN RN kc6 David Rene MD MD ec2 Harlan Rogel RN rs5
[2023-06-11 13:53] VITALS: BP 116/89; TEMP 97.5; O2SAT 96
== END 2023-06-11 13:46 | disposition home or self-care (01) ==
LOC: ER 11:46
DX: S22.32XA Fracture of one rib, left side, initial encounter for closed fracture (principal); L03.114 Cellulitis of left upper limb
CPT/HCPCS: 71045; 96372; 99285

== ENCOUNTER 2023-06-14 11:38 | Emergency (ER) | payer SELFPAY ==
--- OUTSIDE RECORDS SUMMARY | 2023-06-14 11:43 | XMS REPORT | Continuity of Care Document ---
:1970 Author Organization [facility] t Address [address] [place] [address] [address] [place] [address] Care Team Providers Name Role Phone Pcp, Patient Does Not Have A Primary Care Physician [id number] Mona Attending Clinician Unavailable RENEE BELL Attending Clinician Unavailable Renee Storm Attending Clinician BALJINDER LENTZ Attending Clinician Unavailable Mona Admitting Clinician Unavailable BALJINDER LENTZ Admitting Clinician Unavailable Payers Payer Name Policy Type Policy Number Effective Date Expiration Date Helena MIKE [id number] [facility] [id number] 2015 REHABILITATION 00:00:00 Problems Condition Condition Condition [...] fracture, 6-11 ity of right, right, 00:00: [place] closed, closed, 00 Medical initial initial Branch encounter encounter Allergies, Adverse Reactions, Alerts Allergy Allergy Status Severity Reaction(s) Onset Inactive Treating Comm ents Source Name Type Date Date Clinician NO KNOWN Drug Active Univers ALLERGIE Class [facility] Social History Social Habit Start Date Stop Date Quantity Comments Source Exposure to 2022-11-09 2022-11-19 Not sure [facility] SARS-CoV-2 00:00:00 17:05:00 [facility] (event) [place] Alcohol intake 2022-11-19 2022-11-19 University 00:00:00 00:00:00 [facility] Tobacco use and 2017-12-28 2017-12-28 Smokeless tobacco [facility] exposure 00:00:00 00[facility]00[facility]00 [facility] Assigned At [address] [facility] Smoking Status Start Date Stop Date Source Never smoked tobacco [facility] Medications Ordered Filled Start Stop Current Ordering Indication Dosage Frequency Signature Comments Components Source Medication Medication Date Date Medication? Clinician (SIG) Name Name ibuprofen Yes [id number] 600mg Take 1 U nivers 600 mg 4-17 tablet by ity of tablet 00:00: mouth [place] 00 every 6 Medical (six) Branch hours as needed for Pain (scale 4-6). acetaminoph Yes 1{tbl} Take 1-2 Univers en-codeine 7-31 Tabs by ity of (TYLENOL 00:00: mouth [place] #3) 300-30 00 every 4 Medica l [...] 04:00:00 123 mm[Hg] Univer sity of pressure [facility] Diastolic blood 2022-11-20 04:00:00 100 mm[Hg] Unive rsity of pressure [facility] Heart rate 2022-11-20 04:00:00 111 /min [facility] Body temperature 2022-11-20 04:00:00 36.72 [facility] Res[facility] rate 2022-11-20 04:00:00 18 /min [facility] Oxygen saturation in 2022-11-20 04:00:00 98 /min [facility] Arterial blood by [facility] Pulse oximetry [place] Body height 2022-11-19 22:05:00 167.6 cm [facility] Body weight 2022-11-19 22:05:00 86.183 kg [facility] BMI 2022-11-19 22:05:00 30.67 kg/m2 [facility] Procedures Procedure Date / Time Performed Performing Clinician Sour e URINALYSIS 2022-11-20 00:11:00 Mandeep Ortiz Pomerene o f [facility] NOTICE OF PRIVACY 2022-11-19 21:56:58 Doctor Unassigned, No Univ [facility] PRACTICES Name [facility] Encounters Start End Encounter Admission Attending Care Care Encounter Source Date/Time Date/Time Type Type Clinicians Facility Department ID 2023-05-29 2023-05-29 Outpatient Prakash_S_H VFP VFP [id number] Village 00:00:00 00:00:00 RADHA [id number] Family Practic e 2022-11-21 2022-11-21 Outpatient SFA SFA [id number] [place] 13:59:57 13:59:57 [id number] F Ian 2022-11-19 2022-11-19 Emergency [facility] E[facility] [id number] Univers 17:08:00 23:51:00 RENEE pierson [facility] 2022-11-19 2022-11-19 [id number] [facility] 17:08:00 23:51:00 Renee HERNANDEZ [id number] kenna [facility] [id number] [facility] [id number] [facility] jessika 084 Branch 2022-10-02 2022-10-02 Outpatient [facility] [id number] [id number] [place] 09:18:26 09:18:26 [id number] F Ian 2022-09-17 2022-09-17 Outpatient [facility] [id number] [place] 14:52:11 14:52:11 [id number] F Ian 2022-07-02 2022-07-02 Outpatient [facility] [id number] 022 [place] 10:57:24 10:57:24 [id number] F Ian Results Test Description Test Time Test Comments Results Result Comments Source RAPID STREP A SCREEN 2017-12-29 09:58:00 Test Item Value Reference Range Interpretation Comme nts STREP A ANTIGEN (BEAKER) (test code = 556) Negative Negative HIV-1 ANTIGEN WITH HIV-1/2 [id number] 08:48:00 Test Item Value Reference Range Interpretation Comments HIV-1 ANTIGEN WITH HIV 1\T\2 Nonreactive Nonreactive ANTIBODY (2) (BEAKER) (test code = 2586) BASIC METABOLIC [id number] 04:37:00 Test Item Value Reference Range Interpretation [...] ESTIMATED GFR. CBC W/PLT COUNT & AUTO [id number] 04:21:00 Test Item Value Reference Range Interpretation [...] = 2801) RAD, CHEST, 1 VIEW, NON [id number] 15:38:00Post-intubationReason for exam:- >dyspneaShould this be performed at the bedside?->YesFINAL REPORT Chest, one view HISTORY: Dyspnea COMPARISON: None. DISCUSSION: Lung s are clear without focal consolidation. Cardiomediastinal silhouette is unremarkable. No acute osseous abnormality. No pleural effusion or pneumothorax. Visualized portions of the upper abdomen are unremarkable. IMPRESSION: No acute cardiopulmonary abnormality. Signed: Shiraz Culp MDReport Verified Date/Time: 12/28/2017 15:38:07 Reading Location: [address] Body Reading Room APTT 2017-12-28 15:13:00 Test Item Value Reference Range Interpretation Comments PARTIAL THROMBOPLASTIN TIME 32.6 seconds 22.5-36.0 (BEAKER) (test code = 760) PROTHROMBIN [id number] 15:12:00 Test Item Value Reference Range Interpretation [...]
--- NOTE | 2023-06-14 13:19 | EDPHYS ---
Physician Documentation [facility] Name: Jacques Oropeza Age: 53 yrs Sex: Male : 1970 Arrival Date: 06/14/2023 Time: 11:38 Bed 10 Private MD: ED Physician Mery Ortiz HPI: 06/14 13:15 This 53 yrs old Male presents to ER via Ambulatory with complaints of wants a sp3 follow up from a couple days ago. 13:15 53-year-old male with no significant past medical history presents with left upper sp3 extremity area of abscess/erythema. Patient was recently seen and placed on doxycycline for which she is taking. Patient is here for second opinion and wants to know "what to do". He denies any fever, systemic symptoms, or any other signs or symptoms on ROS at this time. Heart rate is 88 on my exam.. Historical: - Allergies: 11:59 No Known Allergies; iw - Home Meds: 11:59 None [Active]; iw - PMHx: 11:59 PRE DIABETIC; iw - PSHx: 11:59 heel; iw ROS: 13:16 Constitutional: Negative for fever, chills, and weight loss, ENT: Negative for injury, sp3 pain, and discharge, Neck: Negative for injury, pain, and swelling, Cardiovascular: Negative for chest pain, palpitations, and edema, Respiratory: Negative for shortness of breath, cough, wheezing, and pleuritic chest pain, Abdomen/GI: Negative for abdominal pain, nausea, vomiting, diarrhea, and constipation, Back: Negative for injury and pain, Neuro: Negative for headache, weakness, numbness, tingling, and seizure, Psych: Negative for depression, anxiety, suicide ideation, homicidal ideation, and hallucinations, Allergy/Immunology: Negative for hives, rash, and allergies, Endocrine: Negative for neck swelling, polydipsia, polyuria, polyphagia, and marked weight changes, 13:16 All other systems are negative, Exam: 13:16 Constitutional: This is a well developed, well nourished patient who is awake, alert, sp3 and in no acute distress. Cardiovascular: Regular rate and rhythm with a normal S1 and S2. No gallops, murmurs, or rubs. Normal PMI, no JVD. No pulse deficits. 13:16 Musculoskeletal/extremity: Patient has 2 cm x 3 cm area of erythema and possible early abscess. Area is hard and not fluctuant. Distal neurovascular exam is normal.. Vital Signs: 11:57 BP 116 / 90; Pulse 107; Resp 16; Temp 98.9; Pulse Ox 100% on R/A; iw MDM: 12:01 Patient medically screened. sp3 13:17 Data reviewed: vital signs, nurses notes. ED course: Patient has cellulitis versus sp3 early left antecubital area abscess. Abscess is not fluctuant and not ready for I\\T\\D. I have advised patient to continue antibiotics and continue warm compresses and return here in 2 to 3 days or to his primary care physician for possible I\\T\\D and reevaluation. Upon completion of my consultation, patient immediately said thank you and left emergency department without any discharge paperwork.. Administered Medications: No medications were administered Disposition Summary: 06/14/23 13:18 Discharge Ordered Condition: Stable sp3 Diagnosis - Cellulitis sp3 Followup: sp3 - With: Private Physician - When: Upon discharge from the Emergency Department - Reason: Continuance of care Discharge Instructions: - Discharge Summary Sheet sp3 - Cellulitis, Adult sp3 Forms: - Medication Reconciliation Form sp3 - Thank You Letter sp3 - Antibiotic Education sp3 - Prescription Opioid Use sp3 - Patient Portal Instructions sp3 - Leadership Thank You Letter sp3 Signatures: Fely Sanchez, RN RN iw Mery Ortiz MD MD sp3
--- NOTE | 2023-06-14 13:19 | ER ---
Nurse's Notes [facility] Name: Jacques Oropeza Age: 53 yrs Sex: Male : 1970 Arrival Date: 06/14/2023 Time: 11:38 Bed 10 Private MD: Diagnosis: Cellulitis Presentation: 06/14 11:57 Chief complaint: Patient states: had an abscess on left forearm and has been on abx iw since yesterday , wants to have it rechecked. Coronavirus screen: At this time, the client does not indicate any symptoms associated with coronavirus-19. Ebola Screen: Patient negative for fever greater than or equal to 101.5 degrees Fahrenheit, and additional compatible Ebola Virus Disease symptoms Patient denies exposure to infectious person. Patient denies travel to an Ebola-affected area in the 21 days before illness onset. No symptoms or risks identified at this time. Initial Sepsis Screen: Does the patient meet any 2 criteria? No. Patient's initial sepsis screen is negative. Does the patient have a suspected source of infection? No. Patient's initial sepsis screen is negative. Risk Assessment: Do you want to hurt yourself or someone else? Patient reports no desire to harm self or others. 11:57 Method Of Arrival: Ambulatory iw 11:57 Acuity: BRODY 4 iw Historical: - Allergies: 11:59 No Known Allergies; iw - Home Meds: 11:59 None [Active]; iw - PMHx: 11:59 PRE DIABETIC; iw - PSHx: 11:59 heel; iw Vital Signs: 11:57 BP 116 / 90; Pulse 107; Resp 16; Temp 98.9; Pulse Ox 100% on R/A; iw ED Course: 11:43 Patient arrived in ED. im 11:44 Mery Ortiz MD is Attending Physician. sp3 11:58 Triage completed. iw 11:59 Arm band placed on. iw Administered Medications: No medications were administered Outcome: 13:18 Discharge ordered by MD. sp3 13:32 Discharged to home ambulatory, jl7 13:32 Condition: stable 13:32 Discharge instructions given to patient, Instructed on discharge instructions, follow up and referral plans. Demonstrated understanding of instructions, follow-up care, Discharged by Dr. Ortiz 13:32 Patient left the ED. jl7 Signatures: Fely Sanchez, RN RN iw Hi Mendoza RN RN jl7 Mery Ortiz MD MD sp3 Maile Sharif
[2023-06-14 13:36] VITALS: BP 116/90; TEMP 98.9; O2SAT 100
== END 2023-06-14 13:32 | disposition home or self-care (01) ==
LOC: ER 11:38
DX: L03.114 Cellulitis of left upper limb (principal)
CPT/HCPCS: 99282

== ENCOUNTER → 2023-09-09 | Emergency (ER) | payer SELFPAY ==
[~2023-09-09] MED LIST: CEFTRIAXONE 500 MG/VIAL ONE; DOXYCYCLINE 100 MG CAP PO ONE; HYDROCODONE/APAP 5/325 MG TAB ONE; LIDOCAINE 1% MPF 2 ML AMPULE ONE
--- NOTE | 2023-09-09 17:36 | RAD REPORT ---
EXAM DESCRIPTION: US - Scrotum Testicles - 09/09/2023 4:27 pm CLINICAL HISTORY: Left testicle swelling;Pain COMPARISON: No comparisons TECHNIQUE: Sonographic grayscale and color flow images of the scrotum were obtained. FINDINGS: The right testicle measures 3.3 x 2.0 x 2.4 cm. No intratesticular masses or evidence of t esticular torsion. The left testicle measures 3.8 x 2.6 x 2.5 cm. Asymmetrically increased vascularity throughout the le ft testicular parenchyma. No intratesticular masses or evidence of testicular torsion. Left epididymal head is asymmetrically enlarged with hypervascularity on color duplex imaging. Right epididymis is normal in size and appearance. Moderate to large left hydrocele with mild debris. IMPRESSION: Asymmetric enlargement and hypervascularity of the left testis and epididymal head, sugg esting epididymo-orchitis. Moderate to large left hydrocele.
--- NOTE | 2023-09-09 17:48 | ER ---
Nurse's Notes [facility] Name: Jacques Oropeza Age: 53 yrs Sex: Male : 1970 Arrival Date: 09/09/2023 Time: 15:26 Bed 9 Private MD: Diagnosis: Epididymo-orchitis Presentation: 09/09 15:32 Chief complaint: Patient states: left testicle swollen for about 5 days, thought it was ko1 getting better but then it swelled up again. Coronavirus screen: At this time, the client does not indicate any symptoms associated with coronavirus-19. Ebola Screen: No symptoms or risks identified at this time. Initial Sepsis Screen: Does the patient meet any 2 criteria? No. Patient's initial sepsis screen is negative. Does the patient have a suspected source of infection? No. Patient's initial sepsis screen is negative. Risk Assessment: Do you want to hurt yourself or someone else? Patient reports no desire to harm self or others. Onset of symptoms is unknown. 15:32 Method Of Arrival: Ambulatory ko1 15:32 Acuity: BRODY 3 ko1 Triage Assessment: 15:35 General: Appears in no apparent distress. uncomfortable, Behavior is calm, cooperative, ko1 appropriate for age. Pain: Complains of pain in groin and left femoral area, left testicle. Historical: - Allergies: 15:35 No Known Allergies; ko1 - PMHx: 15:35 PRE DIABETIC; Anxiety; ko1 - PSHx: 15:35 heel; ko1 - Immunization history:: Adult Immunizations up to date. - Social history:: Smoking status: Patient denies any tobacco usage or history of. Screenin:00 [facility] ED Fall Risk Assessment (Adult) History of falling in the last 3 months, mb9 including since admission No falls in past 3 months (0 pts) Confusion or Disorientation No (0 pts) Intoxicated or Sedated No (0 pts) Impaired Gait No (0 pts) Mobility Assist Device Used No (0 pt) Altered Elimination No (0 pt) Score/Fall Risk Level 0 - 2 = Low Risk Oriented to surroundings, Maintained a safe environment, Educated pt \T\ family on fall prevention, incl call for assistance when getting out of bed. Abuse screen: Denies threats or abuse. Nutritional screening: No deficits noted. Tuberculosis screening: No symptoms or risk factors identified. Assessment: 15:42 : Swelling noted. as6 17:33 Reassessment: No changes from previously documented assessment. Patient and/or family mb9 updated on plan of care and expected duration. Pain level reassessed. Patient is alert, oriented x 3, equal unlabored respirations, skin warm/dry/pink. Vital Signs: 15:32 BP 123 / 84; Pulse 107; Resp 18; Temp 97.4; Pulse Ox 100% ; ko1 17:37 BP 128 / 86; Pulse 95; Resp 18; Pulse Ox 100% on R/A; mb9 ED Course: 15:28 Patient arrived in ED. rg4 15:35 Kemar Cary DO is Attending Physician. ms3 15:35 Triage completed. ko1 15:35 Arm band placed on left wrist. Patient placed in waiting room, on a stretcher, on pulse ko1 oximetry, Patient notified of wait time. 15:47 Desirae Mead, LES is Primary Nurse. mb9 15:59 Placed in gown. Bed in low position. Call light in reach. Side rails up X 1. Client mb9 placed on continuous cardiac and pulse oximetry monitoring. NIBP monitoring applied. 16:00 No provider procedures requiring assistance completed. mb9 16:29 US Scrotum Testicles In Process Unspecified. EDMS 17:48 Jason Dixon MD is Referral Physician. ms3 17:58 Patient did not have IV access during this emergency room visit. mb9 Administered Medications: 15:48 Drug: HYDROcodone-acetaminophen PO 5 mg-325 mg 1 tabs PO once Route: PO; as6 16:41 Follow up: Response: No adverse reaction mb9 17:58 Follow up: Response: No adverse reaction mb9 17:45 Drug: Rocephin (cefTRIAXone) IM 500 mg IM once Route: IM; Site: right gluteus; mb9 17:58 Follow up: Response: No adverse reaction mb9 17:45 Drug: Doxycycline PO 100 mg PO once Route: PO; mb9 17:58 Follow up: Response: No adverse reaction mb9 Medication: 16:00 VIS not applicable for this client. mb9 Outcome: 17:48 Discharge ordered by . ms3 17:58 Discharged to home ambulatory, mb9 17:58 Condition: stable 17:58 Discharge instructions given to patient, Instructed on discharge instructions, follow up and referral plans. Demonstrated understanding of instructions, follow-up care, medications, Prescriptions given X 1, 18:01 Patient left the ED. mb9 Signatures: Dispatcher [employer] EDMS Alexandrea Gonzalez rg4 Kemar Cary, DO DO ms3 Amador Mcclain RN RN as6 Yina Kilpatrick RN RN ko1 Desirae Mead RN RN mb9
--- NOTE | 2023-09-09 17:48 | EDPHYS ---
Physician Documentation [facility] Name: Jacques Oropeza Age: 53 yrs Sex: Male : 1970 Arrival Date: 09/09/2023 Time: 15:26 Bed 9 Private MD: ED Physician Kemar Cary HPI: 09/09 17:20 This 53 yrs old Male presents to ER via Ambulatory with complaints of ms3 Testicular Swelling. 17:20 Male with past medical history of prediabetes, anxiety presents to the emergency ms3 department for left testicular pain and swelling. Patient states he has had testicular pain for 5 days. Patient rates his pain a 9/10. Patient denies any alleviating or inciting factors. Historical: - Allergies: 15:35 No Known Allergies; ko1 - PMHx: 15:35 PRE DIABETIC; Anxiety; ko1 - PSHx: 15:35 heel; ko1 - Immunization history:: Adult Immunizations up to date. - Social history:: Smoking status: Patient denies any tobacco usage or history of. ROS: 17:20 Constitutional: Negative for fever, and chills. ENT: Negative for injury, pain, and ms3 discharge, Neck: Negative for injury, pain, and swelling, Cardiovascular: Negative for chest pain, and palpitations. Respiratory: Negative for shortness of breath, cough, wheezing, and pleuritic chest pain, Abdomen/GI: Negative for abdominal pain, nausea, vomiting, diarrhea, and constipation, MS/Extremity: Negative for injury and deformity, 17:20 : Positive for testicular pain 17:20 All other systems are negative, Exam: 17:20 Constitutional: This is a well developed, well nourished patient who is awake, alert, ms3 and in no acute distress. Head/Face: Normocephalic, atraumatic. Chest/axilla: Normal chest wall appearance and motion. Nontender with no deformity. Cardiovascular: Regular rate and rhythm with a normal S1 and S2. No gallops, murmurs, or rubs. Normal PMI, no JVD. No pulse deficits. Respiratory: Lungs have equal breath sounds bilaterally, clear to auscultation and percussion. No rales, rhonchi or wheezes noted. No increased work of breathing, no retractions or nasal flaring. Abdomen/GI: Soft, non-tender, with normal bowel sounds. No distension or tympany. No guarding or rebound. No evidence of tenderness throughout. 17:20 : Male external genitalia: swelling, of the left testicle is noted, that is moderate, tenderness, of the left testicle is noted, that is moderate, Sexual behavior: the patient is sexually active, and reports multiple partners, Vital Signs: 15:32 BP 123 / 84; Pulse 107; Resp 18; Temp 97.4; Pulse Ox 100% ; ko1 17:37 BP 128 / 86; Pulse 95; Resp 18; Pulse Ox 100% on R/A; mb9 MDM: 15:45 Patient medically screened. ms3 17:20 Differential diagnosis: UTI, Epididymitis vs Torsion. ms3 17:48 Data reviewed: vital signs, nurses notes, radiologic studies, ultrasound, and as a ms3 result, I will discharge patient. I considered the following discharge prescriptions or medication management in the emergency department Medications were administered in the Emergency Department. See MAR. Care significantly affected by the following Social Determinants of Health: Poor access to healthcare and/or lack of insurance. Counseling: I had a detailed discussion with the patient and/or guardian regarding the historical points, exam findings, and any diagnostic results supporting the discharge/admit diagnosis, radiology results, the need for outpatient follow up, to return to the emergency department if symptoms worsen or persist or if there are any questions or concerns that arise at home. ED course: Discussed ultrasound findings with patient. Patient to follow-up with Dr. Dixon in 2 to 3 days. Patient understands and agrees with plan. All questions were answered. Return precautions discussed include worsening symptoms, or any other concerns. 09/09 15:44 Order name: US Scrotum Testicles; Complete Time: 17:44 ms3 Administered Medications: 15:48 Drug: HYDROcodone-acetaminophen PO 5 mg-325 mg 1 tabs PO once Route: PO; as6 16:41 Follow up: Response: No adverse reaction mb9 17:58 Follow up: Response: No adverse reaction mb9 17:45 Drug: Rocephin (cefTRIAXone) IM 500 mg IM once Route: IM; Site: right gluteus; mb9 17:58 Follow up: Response: No adverse reaction mb9 17:45 Drug: Doxycycline PO 100 mg PO once Route: PO; mb9 17:58 Follow up: Response: No adverse reaction mb9 Disposition Summary: 09/09/23 17:48 Discharge Ordered Notes: Location: Home ms3 Condition: Stable ms3 Diagnosis - Epididymo-orchitis ms3 Followup: ms3 - With: Jason Dixon MD - When: 2 - 3 days - Reason: Recheck today's complaints Discharge Instructions: - Discharge Summary Sheet ms3 - Epididymitis ms3 - Orchitis ms3 Forms: - Medication Reconciliation Form ms3 - Thank You Letter ms3 - Antibiotic Education ms3 - Prescription Opioid Use ms3 - Patient Portal Instructions ms3 - Leadership Thank You Letter ms3 Prescriptions: - Doxycycline Hyclate 100 mg Oral Tablet - take 1 tablet ORAL route every 12 hours; 20 tablet; Refills: 0, Product ms3 Selection Permitted Signatures: Dispatcher [employer] Kemar Lou, DO DO ms3 Amador Mcclain RN RN as6 Yina Kilpatrick RN RN ko1 Desirae Mead RN RN mb9
== END ==
LOC: ER 15:26
DX: N45.3 Epididymo-orchitis (principal)
CPT/HCPCS: 76870